=== PATIENT | male | born 1965 | race Caucasian/White ===

== ENCOUNTER 2019-05-07 13:13 | Inpatient (IN) | payer MEDICARE ==
[2019-05-07] MEDS ORDERED: Succinylcholine Chloride 20 MG/ML 10 ml SYRINGE FS ONE (13:29)
[2019-05-07] MEDS ORDERED: Ketamine 50 MG/ML (10ML VIAL) ONE (13:37)
[2019-05-07] MEDS ORDERED: Propofol 1,000 MG/100 ML VIAL IV ONE (13:40)
[2019-05-07] MEDS ORDERED: Propofol 500 MG/50 ML VIAL ONE (13:40)
[2019-05-07] MEDS ORDERED: Midazolam HCl 5 mg/ml Vial ONE ×2 (13:50→15:00)
[2019-05-07 14:11] LABS: ALT (SGPT) 54 U/L (8-55); AST (SGOT) 32 U/L (5-34); Alkaline Phosphatase 106 U/L (40-110); Anion Gap 12 mmol/L (10-20); BUN (Urea Nitrogen) 18 mg/dL (8.4-25.7); Bilirubin, Total 0.4 mg/dL (0.2-1.2); Calc. Creatinine Clearance 0 mL/min (70-130); Calcium 9.3 mg/dL (7.8-10.44); Carbon Dioxide 27 mmol/L (22-29); Chloride 107 mmol/L (98-107); Estimated GFR-MDRD 73; Globulin 3.5 g/dL (2.4-3.5); Glucose 114 mg/dL (70-105); Potassium 5.1 mmol/L (3.5-5.1); Protein, Total 7.5 g/dL (6.0-8.3); Sodium 141 mmol/L (136-145)
[2019-05-07 14:13] LABS: Actual Bicarbonate (HCO3a) 23.4 mEq/L (22-28); Analyzer IN Cardio ER; Base Excess (BEa) -3.1 mEq/L (-2.0 to +3.0); CO2 Tension 47.1 mmHg (35.0-45.0); Calcium, Ionized 1.23 mmol/L (1.12-1.30); Carboxyhemoglobin (COHb) 1.2 gm% (0.0-3.0); Hemoglobin (Hb) 14.5 g/dL (14.0-18.0); O2 Tension (PaO2) 87.1 mmHg (80.0-100.0); Potassium - ABG Lab 3.96 mmol/L (3.70-5.30); pH, Arterial 7.31 (7.35-7.45)
[2019-05-07 14:14] LABS: Prothrombin Time 13.6 SEC (12.0-14.7)
[2019-05-07 14:15] LABS: PTT 21.8 SEC (22.9-36.1)
[2019-05-07 14:24] LABS: ALV-art Gradient 139.225 (0-20); Puncture Site RRA
[2019-05-07] MEDS ORDERED: Glycopyrrolate 0.4 MG/ 2 ML VIAL SLOW IVP SCH (14:30)
[2019-05-07 14:37] LABS: Amphetamine Detected (NotDetected); Barbiturates Screen Not Detected (NotDetected); Benzodiazepine Screen Not Detected (NotDetected); Cocaine Metabolite Screen Not Detected (NotDetected); Medtox Control Line Valid? VALID (VALID); Medtox Reader # READER 4; Methadone Not Detected (NotDetected); Methamphetamine Detected (NotDetected); Opiate Screen Not Detected (NotDetected); Oxycodone Screen Not Detected (NotDetected); Phencyclidine (PCP) Detected (NotDetected); THC/Cannabinoid Screen Not Detected (NotDetected); Tricyclic Screen Not Detected (NotDetected)
[2019-05-07 14:46] LABS: #Basophils 0.1 thou/uL (0.0-0.2); #Eosinphils 0.1 thou/uL (0.0-0.7); #Monocytes 0.4 thou/uL (0.11-0.59); #Neutrophils 4.3 thou/uL (1.40-6.50); %Basophils 0.9 % (0.0-1.0); %Eosinophils 1.1 % (0.0-10.0); %Lymphocytes 17.8 % (21.0-51.0); %Monocytes 6.4 % (0.0-10.0); %Neutrophils 73.8 % (42.0-75.0); Hemoglobin 13.3 g/dL (14.0-18.0); Mean Corpuscular HGB CONC 34.2 g/dL (32.0-36.0); Mean Corpuscular Hemoglobin 31.7 pg (27.0-31.0); Mean Corpuscular Volume 92.8 fL (78.0-98.0); Mean Platelet Volume 7.5 fL (7.4-10.4); Platelet Count 221 thou/uL (130-400); RBC Distribution Width 12.3 % (11.5-14.5); White Blood Cell (WBC) Count 5.8 thou/uL (4.8-10.8)
[2019-05-07 14:53] LABS: Acetaminophen Less than 6.0 mcg/mL (10.0-30.0); Alcohol Less than 10 mg/dL (Less than 10); Salicylate Less than 8.0 mg/dL (15.0-30.0)
--- NOTE | 2019-05-07 14:59 | RAD ---
PORTABLE CHEST 1 VIEW: Date: 05/07/19 Time: 1440 hours HISTORY: Respiratory failure, drug overdose. FINDINGS/IMPRESSION: There is an endotracheal tube with tip at the level of the clavicular heads. The heart size is normal . The aorta is tortuous. No lobar consolidation, pneumothoraces, danuta pulmonary edema, or large effu sions are seen. POS: TPC
[2019-05-07] MEDS ORDERED: Glycopyrrolate 0.2 MG/ML 5 ML SYRINGE SLOW IVP SCH (15:00)
--- NOTE | 2019-05-07 15:17 | CT ---
Head CT without contrast 05/07/2019: Comparison: None HISTORY: Altered mental status, overdose TECHNIQUE: Axial CT imaging at 5 mm intervals from vertex through skull base without contrast FINDINGS: There is fluid within the nasal cavity bilaterally and within the posterior nasopharynx. Th ere is soft tissue density in the posterior lateral aspect of the oropharynx, right greater than left, which may be on the basis of redundant normal mucosal structures or a mucosal-based abnormality for which direct visualization is advised when the patient is able. No intracranial hemorrhage, midline shift, or mass effect. No ventricular enlargement. IMPRESSION: Fluid and soft tissue density within the nasopharynx and oropharynx as detailed above, po siva assessed on this examination. No intracranial hemorrhage is seen. CODE T
[2019-05-07] MEDS ORDERED: Ondansetron PF 4 MG/2 ML Vial IVP PRN ×2 (15:38→15:40)
[2019-05-07] MEDS ORDERED: Bisacodyl 10 MG SUPP PR PRN (15:38)
[2019-05-07] MEDS ORDERED: Bisacodyl 5 MG TAB PO PRN (15:38)
[2019-05-07] MEDS ORDERED: Senokot S 8.6-50 MG TAB PO PRN (15:38)
[2019-05-07] MEDS ORDERED: HYDROcodone/Acetaminophen 5/325 mg Tablet PO PRN (15:38)
[2019-05-07] MEDS ORDERED: Loperamide HCl 2 MG CAP PO PRN (15:38)
[2019-05-07] MEDS ORDERED: Morphine 2 MG/ML SYRINGE SLOW IVP PRN ×2 (15:40→18:46)
[2019-05-07] MEDS ORDERED: cloNIDine 0.1 MG TAB PO PRN (15:40)
[2019-05-07] MEDS ORDERED: hydrALAZINE 20 MG/ML VIAL SLOW IVP PRN (15:40)
[2019-05-07] MEDS ORDERED: Promethazine HCl 12.5 MG in Sodium Chloride 0.9% 50 ML IVPB PRN (15:40)
--- NOTE | 2019-05-07 15:52 | PDOC.HHP ---
Hospitalist HPI - History of Present Illness Altered mental status History of Present Illness: Patient is a 53 year old male brought to ED by EMS/law enforcement after being found by car on side of road with fluctuating mental status. penal officer at bedside reports they found methamphetamine and norco in his car. He originally was GCS 3, lesa to 7 and awake and alert but confused for a time, brought to ED and became somnolent, given narcan but did not help, patient began to snore loudly and was becoming less responsive so he was intubated in ED for airway protection. Reportedly patient had a seizure in the ambulance lasting appx 6 minutes, recieved 4mg ativan and 1mg narcan with recovery to GCS 6. In ED, CXR without acute processes and good ET tube placement. CT head with no intracranial findings. Vitals hypotensive initially, improved after intubation. EKG NSR. They discussed with Dr Che of pulmonology. [facility] Nurse at bedside and lawn care worker in room did not know any contacts or way to reach any family members. Hospitalist ROS - Review of Systems ROS unobtainable: due to endotracheal tube Hospitalist History - Past Medical History Source: RN notes reviewed, old records Other Medical History: TBI R leg injury lung cancer - Past Surgical History Other Surgical History: leg surgery - Family History Other Family History: Unable to obtain due to intubated and sedated. - Social History Other Social History: Previous cocaine, heroin abuse. Methamphetamine and norco in car. UDS positive for PCP. Patient unable to supplement this, intubated. - Exam General - other findings: intubated, sedated Eye: PERRL ENT: normocephalic atraumatic, moist mucosa ENT - other findings: ET tube in place Neck: supple, no JVD Heart: RRR, no murmur, no gallops, no rubs Respiratory: CTAB, no wheezes, no rales, no ronchi Gastrointestinal: soft, non-tender, non-distended, normal bowel sounds Extremities: no cyanosis, no clubbing, 1+ LE edema Skin: no lesions, no rashes Neurological - other findings: sedated, unable to examined, responded to stimuli before propofol per nurse Musculoskeletal: normal tone Psychiatric - other findings: unable to eval Hospitalist Results - Labs Result Diagrams: 05/07/19 14:20 05/07/19 13:28 Lab results: WBC 5.8 thou/uL (4.8-10.8) 05/07/19 14:20 Hgb 13.3 g/dL (14.0-18.0) L 05/07/19 14:20 Hct 38.9 % (42.0-52.0) L 05/07/19 14:20 MCV 92.8 fL (78.0-98.0) 05/07/19 14:20 Plt Count 221 thou/uL (130-400) 05/07/19 14:20 Neutrophils % 73.8 % (42.0-75.0) 05/07/19 14:20 ABG pH 7.31 (7.35-7.45) L 05/07/19 14:04 ABG pCO2 47.1 mmHg (35.0-45.0) H 05/07/19 14:04 ABG pO2 87.1 mmHg (80.0-100.0) 05/07/19 14:04 Sodium 141 mmol/L (136-145) 05/07/19 13:28 Potassium 5.1 mmol/L (3.5-5.1) 05/07/19 13:28 Chloride 107 mmol/L (98-107) 05/07/19 13:28 Carbon Dioxide 27 mmol/L (22-29) 05/07/19 13:28 BUN 18 mg/dL (8.4-25.7) 05/07/19 13:28 Creatinine 1.07 mg/dL (0.7-1.3) 05/07/19 13:28 Glucose 114 mg/dL (70-105) H 05/07/19 13:28 Calcium 9.3 mg/dL (7.8-10.44) 05/07/19 13:28 Total Bilirubin 0.4 mg/dL (0.2-1.2) 05/07/19 13:28 AST 32 U/L (5-34) 05/07/19 13:28 ALT 54 U/L (8-55) 05/07/19 13:28 Alkaline Phosphatase 106 U/L (40-110) 05/07/19 13:28 Creatine Kinase 175 U/L (30-200) 05/07/19 13:20 Serum Total Protein 7.5 g/dL (6.0-8.3) 05/07/19 13:28 Albumin 4.0 g/dL (3.5-5.0) 05/07/19 13:28 Additional comment: EKG NSR rate 70s no acute changes Hospitalist H&P A/P - Plan Plan: Patient is a 53 year old male admitted for: # acute hypoxic and hypercapneic respiratory failure - presumed secondary to drug abuse, PCP/methamphetamine/narcotic positive on UDS, however patient also had seizure - previous records reviewed with what seems to be overdose attempt with heroin and cocaine in 2016, will need MR consult before discharge - admit to ICU, appreciate pulmonary/critical care assistance - IVF - additional labs ordered # seizure - 6 minutes long, resolved with ativan in EMS # history of bipolar disorder - noted, presented in 2016 for suicidal ideations and note reports had been off of meds for 4 months # history of suicidal ideation - unable to ask further questions due to intubation, MHMR consult before d/c # abnormal head CT findings - unusual finding on CT head, in ramirez and nasopharynx , call placed to Dr Angulo of ENT office for help with looking at film, awaiting call back # anemia - mild # metabolic acidosis - negative ASA, tylenol, alcohol, possible secondary to substance abuse 42 minutes critical care time, patient with organ failure and needing ventilator to sustain life
[2019-05-07] MEDS ORDERED: Lorazepam 2 MG/ML VIAL SLOW IVP PRN ×2 (16:07→18:46)
[2019-05-07 17:05] LABS: Troponin I Less than 0.010 ng/mL (< 0.028)
[2019-05-07] MEDS: Sodium Chloride 0.9% 1,000 ML IV SCH (18:39)
[2019-05-07] MEDS ORDERED: Propofol BOLUS 1,000 MG/100 ML VIAL IV PRN (18:46)
[2019-05-07] MEDS ORDERED: DISCONTINUE PREVIOUS NARCOTIC PAIN MEDICATIONS AND BENZODIAZEPINES FS SCH (18:46)
[2019-05-07] MEDS ORDERED: Fentanyl BOLUS 250 ML IVPB PRN (18:46)
[2019-05-07] MEDS ORDERED: fentaNYL Citrate/PF 2,000 MCG in Sodium Chloride 0.9% 60 ML IV SCH (18:46)
[2019-05-07] MEDS: Famotidine/PF 20 mg/2ml Vial SLOW IVP SCH (21:25)
[2019-05-07] MEDS: Propofol 1,000 MG/100 ML VIAL IV PRN (21:41)
[2019-05-07 21:42] LABS: Bacteria/HPF None Seen HPF (None Seen); Bilirubin Negative (Negative); Blood, Urine Negative (Negative); Clarity Clear (Clear); Glucose, Urine (Dipstick) Normal (Negative); Leukocyte Negative Leu/uL (Negative); Nitrite Negative (Negative); Protein, Urine (Dipstick) Negative (Neg-Trace); RBC/HPF 0-3 HPF (0-3); Squamous Epithelial 0-3 HPF (0-3); Urobilinogen Normal mg/dL (Less than 2); WBC/HPF 0-3 HPF (0-3)
[2019-05-07 21:45] LABS: Urine Culture Reflex No No
[2019-05-07 22:43] LABS: Troponin I 0.016 ng/mL (< 0.028)
[2019-05-08] MEDS: Sodium Chloride 0.9% 1,000 ML IV SCH ×5 (02:26→19:47)
[2019-05-08 04:27] LABS: #Basophils 0.1 thou/uL (0.0-0.2); #Eosinphils 0.1 thou/uL (0.0-0.7); #Monocytes 0.7 thou/uL (0.11-0.59); #Neutrophils 5.3 thou/uL (1.40-6.50); %Basophils 0.8 % (0.0-1.0); %Eosinophils 1.3 % (0.0-10.0); %Lymphocytes 14.3 % (21.0-51.0); %Monocytes 9.3 % (0.0-10.0); %Neutrophils 74.3 % (42.0-75.0); Hemoglobin 12.8 g/dL (14.0-18.0); Mean Corpuscular HGB CONC 33.8 g/dL (32.0-36.0); Mean Corpuscular Hemoglobin 31.5 pg (27.0-31.0); Mean Corpuscular Volume 93.3 fL (78.0-98.0); Mean Platelet Volume 7.8 fL (7.4-10.4); Platelet Count 203 thou/uL (130-400); RBC Distribution Width 12.1 % (11.5-14.5); Red Blood Cell (RBC) Count 4.06 mill/uL (4.70-6.10); White Blood Cell (WBC) Count 7.1 thou/uL (4.8-10.8)
[2019-05-08 04:43] LABS: Anion Gap 10 mmol/L (10-20); BUN (Urea Nitrogen) 13 mg/dL (8.4-25.7); Calc. Creatinine Clearance 149 mL/min (70-130); Calcium 8.5 mg/dL (7.8-10.44); Carbon Dioxide 26 mmol/L (22-29); Chloride 110 mmol/L (98-107); Estimated GFR-MDRD Greater than 90; Glucose 105 mg/dL (70-105); Magnesium 1.8 mg/dL (1.6-2.6); Potassium 3.7 mmol/L (3.5-5.1); Sodium 142 mmol/L (136-145)
[2019-05-08 06:48] LABS: Actual Bicarbonate (HCO3a) 23.9 mEq/L (22-28); CO2 Tension 40.6 mmHg (35.0-45.0); Carboxyhemoglobin (COHb) 0.8 gm% (0.0-3.0); Hemoglobin (Hb) 13.7 g/dL (14.0-18.0); O2 Tension (PaO2) 112.3 mmHg (80.0-100.0); Potassium - ABG Lab 3.84 mmol/L (3.70-5.30); pH, Arterial 7.39 (7.35-7.45)
[2019-05-08 06:53] LABS: Puncture Site RBRACH
[2019-05-08] MEDS: Enoxaparin Sodium 40 MG/0.4 ML SYRINGE SC SCH (07:34)
[2019-05-08] MEDS: Famotidine/PF 20 mg/2ml Vial SLOW IVP SCH ×2 (07:34→19:46)
[2019-05-08] MEDS: Propofol 1,000 MG/100 ML VIAL IV PRN (08:00)
--- NOTE | 2019-05-08 09:25 | PDOC.HOSPP ---
- Subjective Encounter Date: 05/08/19 Encounter Time: :23 Subjective: CC: Altered mental status Subjective: patient continues intubated and sedated, no issues overnight except occasional trying to sit up resolved with redirection. no seizure activity reported - Objective Vital Signs & Weight: Vital Signs (12 hours) Temp Pulse Resp BP Pulse Ox 05/08/19 08:00 18 100 05/08/19 07:01 71 19 100 05/08/19 07:00 97.7 F 05/08/19 06:00 17 05/08/19 04:00 15 05/08/19 02:36 62 121/87 05/08/19 02:00 16 05/08/19 00:32 60 14 100 05/08/19 00:00 98.1 F 13 05/07/19 22:22 63 133/80 05/07/19 22:00 13 Weight Weight 215 lb 9.793 oz Most Recent Monitor Data Heart Rate from ECG 78 NIBP 109/74 NIBP BP-Mean 85 Respiration from ECG 17 SpO2 100 I&O: 05/07/19 05/08/19 05/09/19 06:59 06:59 06:59 Intake Total 1458 Output Total 1160 175 Balance 298 -175 Result Diagrams: 05/08/19 03:44 05/08/19 03:44 Hospitalist ROS - Medication Medications: Active Medications Generic Name Dose Route Start Last Admin Trade Name Freq PRN Reason Stop Dose Admin Albuterol/Ipratropium 3 ml 05/07/19 19:00 05/08/19 07:01 Duoneb NEB 3 ml I2ID-AD JAI Administration Enoxaparin Sodium 40 mg 05/08/19 09:00 05/08/19 07:34 Lovenox SC 40 mg 0900 JAI Administration Famotidine 20 mg 05/07/19 21:00 05/08/19 07:34 Pepcid SLOW IVP 20 mg Q12HR JAI Administration Sodium Chloride 1,000 mls @ 125 mls/hr 05/07/19 15:45 05/08/19 07:34 Normal Saline 0.9% IV Not Given .Q8H JAI Levetiracetam 500 mg/ Device 100 mls @ 200 mls/hr 05/07/19 21:00 05/08/19 07: 34 IVPB 100 mls BID JAI Administration Propofol 1,000 mg 05/07/19 18:46 05/07/19 21:41 Diprivan IV 06/06/19 18:46 1,000 mg INF PRN Administration TO ACHIEVE GOAL RASS Protocol Hosp A/P - Plan Patient is a 53 year old male admitted for: # acute hypoxic and hypercapneic respiratory failure - presumed secondary to drug abuse, PCP/methamphetamine/narcotic positive on UDS, however patient also had seizure in ambulance, no recurrence of seizure activity - previous records reviewed with what seems to be overdose attempt with heroin and cocaine in 2016, also seems possilby manic at that time, combative and noncompliant, will need MHMR consult before discharge likely - appreciate pulmonary/critical care assistance, ED discussed with Dr Che - ABG improved today, possibly candidate for extubation? - IVF # seizure - 6 minutes long x 1 episode, resolved with ativan in EMS - monitor for further sz activity, keppra ordered # history of bipolar disorder - noted, presented in 2016 for suicidal ideations and appears manic based on the behavior described in records, substance abuse history # polysubstance abuse - positive for opioids, pcp, methamphetamine in ED, recommend screen for agitation before extubation, precedex may help? # history of suicidal ideation - went to ED for suicide attempt with pill ingestion in 2016, unable to ask further questions yet this admission due to intubation, MHMR consult before d/c # abnormal head CT findings - unusual finding on CT head, in ramirez and nasopharynx , call placed to Dr Angulo of ENT office for help with looking at film, awaiting call back # anemia - mild # metabolic acidosis - negative ASA, tylenol, alcohol, possible secondary to substance abuse # history of polysubstance abuse - MHMR consult before discharge Physcial Exam - Physical Exam Comments: General - other findings: intubated, sedated Eye: PERRL ENT: normocephalic atraumatic, moist mucosa ENT - other findings: ET tube in place Neck: supple, no JVD Heart: RRR, no murmur, no gallops, no rubs Respiratory: CTAB, no wheezes, no rales, no ronchi Gastrointestinal: soft, non-tender, non-distended, normal bowel sounds Extremities: no cyanosis, no clubbing, 1+ LE edema Skin: no lesions, no rashes Neurological - other findings: sedated, unable to examined, responded to stimuli before propofol per nurse Musculoskeletal: normal tone Psychiatric - other findings: unable to eval
[2019-05-08] MEDS ORDERED: Haloperidol Lactate 5 MG/ML VIAL ONE (13:09)
[2019-05-08] MEDS ORDERED: Haloperidol Lactate 5 MG/ML VIAL SLOW IVP SCH (13:45)
[2019-05-08] MEDS: Acetaminophen 325 MG TAB PO PRN (18:37)
--- NOTE | 2019-05-08 22:40 | CON ---
Critical care time 30 minutes DATE OF CONSULTATION: HISTORY OF PRESENT ILLNESS: Saulo Hernandez is a 53-year-old male, apparently found down on the side of the road. He had waxing and waning mental status. Initially, they thought that they would be able to arrest him, but he became more somnolent leading to transfer to the Emergency Department. Subsequently, he was intubated. This morning with a sedation holiday, he was awaking, but moderately combative. He has ankle-wrist cuffs on and soft restraints. Remained sedated. I recommended leather restraints for the patient anticipating he might be extubated. Also, recommended a dose of IV Haldol prior to weaning and extubation. He has never been hospitalized here before. PAST MEDICAL HISTORY: Otherwise unknown. There was a visit in September of 2015. He was seen here with suicidal ideation. The notes from 2016 stated that he is reportedly bipolar. FAMILY HISTORY: Otherwise unknown. SOCIAL HISTORY: Unknown. REVIEW OF SYSTEMS: Not obtainable. PHYSICAL EXAMINATION: VITAL SIGNS: Blood pressure was stable overnight. Heart rate was in the 90s, respiratory rates in the teens. HEAD AND NECK: Unremarkable. LUNGS: Clear. HEART: Regular rhythm. ABDOMEN: Soft. EXTREMITIES: Without clubbing, cyanosis, or edema. NEUROLOGIC: Grossly nonfocal. IMAGING DATA: Chest radiograph is clear. LABORATORY DATA: Lab was remarkable for hemoglobin of 15.2 in 2016, 13.3 on admission, 12.8 today. White count was normal. Electrolytes were normal. He had PCP, amphetamine and methamphetamine in his system. He has had cocaine in his system in 2016. IMPRESSION: Drug overdose, most likely secondary to sedative drugs, but not picked up by a drug screen. Fentanyl would be a distinct possibility, although he apparently was not found with any fentanyl. In any event, he has improved. He is given the Haldol. Once he is fully awake and the sedation is cleared, I recommended that he be extubated. He can probably be released to the [facility] tomorrow if he is stable overnight. Job ID: [id number] MTDD
[2019-05-09] MEDS: Sodium Chloride 0.9% 1,000 ML IV SCH ×3 (08:09→19:49)
[2019-05-09] MEDS: Famotidine/PF 20 mg/2ml Vial SLOW IVP SCH ×2 (08:09→19:48)
[2019-05-09] MEDS: Enoxaparin Sodium 40 MG/0.4 ML SYRINGE SC SCH (09:29)
[2019-05-09 09:49] LABS: #Lymphocytes 1.1 thou/uL (1.20-3.40); #Monocytes 0.9 thou/uL (0.11-0.59); #Neutrophils 8.5 thou/uL (1.40-6.50); %Basophils 0.3 % (0.0-1.0); %Eosinophils 0.2 % (0.0-10.0); %Lymphocytes 10.6 % (21.0-51.0); %Monocytes 8.6 % (0.0-10.0); %Neutrophils 80.3 % (42.0-75.0); Hemoglobin 13.1 g/dL (14.0-18.0); Mean Corpuscular HGB CONC 34.3 g/dL (32.0-36.0); Mean Corpuscular Hemoglobin 31.9 pg (27.0-31.0); Mean Corpuscular Volume 93.1 fL (78.0-98.0); Mean Platelet Volume 7.7 fL (7.4-10.4); Platelet Count 157 thou/uL (130-400); RBC Distribution Width 12.3 % (11.5-14.5); Red Blood Cell (RBC) Count 4.09 mill/uL (4.70-6.10); White Blood Cell (WBC) Count 10.6 thou/uL (4.8-10.8)
[2019-05-09 10:13] LABS: Anion Gap 12 mmol/L (10-20); BUN (Urea Nitrogen) 12 mg/dL (8.4-25.7); Calc. Creatinine Clearance 162 mL/min (70-130); Calcium 8.2 mg/dL (7.8-10.44); Carbon Dioxide 22 mmol/L (22-29); Chloride 108 mmol/L (98-107); Estimated GFR-MDRD Greater than 90; Glucose 94 mg/dL (70-105); Magnesium 1.7 mg/dL (1.6-2.6); Potassium 4.1 mmol/L (3.5-5.1); Sodium 138 mmol/L (136-145)
--- NOTE | 2019-05-09 16:06 | PDOC.HOSPP ---
- Subjective Subjective: Seen and examined. Patient has been extubated. Patient is somnolent status post IV Haldol though he is protecting his airway and withdrawals from noxious stimuli. Patient remains restrained and handcuffed for his safety. Email Marketer at bedside, no family available this a.m. - Objective Vital Signs & Weight: Vital Signs (12 hours) Temp Pulse Resp BP Pulse Ox 05/09/19 14:07 98 05/09/19 14:04 104 H 16 05/09/19 12:43 98.5 F 80 20 113/72 99 05/09/19 08:00 97.6 F 05/09/19 07:56 73 16 100 05/09/19 07:38 100 05/09/19 04:59 98.9 F Weight Admit Weight 215 lb 9.793 oz Weight 215 lb 9.793 oz Most Recent Monitor Data Heart Rate from ECG 95 NIBP 117/84 NIBP BP-Mean 95 Respiration from ECG 19 SpO2 94 I&O: 05/08/19 05/09/19 05/10/19 06:59 06:59 06:59 Intake Total 1458 2824.8 750 Output Total 1160 2065 425 Balance 298 759.8 325 Result Diagrams: 05/09/19 09:30 05/09/19 09:30 Hospitalist ROS - Medication Medications: Active Medications Generic Name Dose Route Start Last Admin Trade Name Freq PRN Reason Stop Dose Admin Acetaminophen 650 mg 05/07/19 15:38 05/08/19 18:37 Tylenol PO 650 mg Q4H PRN Administration Headache/Fever/Mild Pain (1-3) Albuterol/Ipratropium 3 ml 05/07/19 19:00 05/09/19 14:04 Duoneb NEB 3 ml [id number] JAI Administration Enoxaparin Sodium 40 mg 05/08/19 09:00 05/09/19 09:29 Lovenox SC 40 mg 0900 JAI Administration Famotidine 20 mg 05/07/19 21:00 05/09/19 08:09 Pepcid SLOW IVP 20 mg Q12HR JAI Administration Sodium Chloride 1,000 mls @ 125 mls/hr 05/07/19 15:45 05/09/19 15:10 Normal Saline 0.9% IV Not Given .Q8H JAI Levetiracetam 500 mg/ Device 100 mls @ 200 mls/hr 05/07/19 21:00 05/09/19 08: 09 IVPB 100 mls BID JAI Administration Propofol 1,000 mg 05/07/19 18:46 05/08/19 08:00 Diprivan IV 06/06/19 18:46 1,000 mg INF PRN Administration TO ACHIEVE GOAL RASS Protocol - Exam General Appearance: NAD Eye: PERRL, anicteric sclera ENT: normocephalic atraumatic, moist mucosa Neck: supple, symmetric Heart: RRR, no murmur, no gallops, no rubs Respiratory: CTAB, no wheezes, no rales, no ronchi Gastrointestinal: soft, non-tender, no guarding, no rigidity Extremities: no edema Skin: no lesions, no rashes Neurological: cranial nerve grossly intact, normal sensation to touch Musculoskeletal: generalized weakness Psychiatric: somnolent Hosp A/P (1) Sedative overdose Code(s): T42.71XA - POISN BY UNSP ANTIEPLPTC AND SED-HYPNTC DRUGS, ACC, INIT Status: Acute (2) Acute respiratory failure Code(s): J96.00 - ACUTE RESPIRATORY FAILURE, UNSP W HYPOXIA OR HYPERCAPNIA Status: Acute (3) Hypoxia Code(s): R09.02 - HYPOXEMIA Status: Acute - Plan Plan: intensive care unit, pending down grade pulmonology/critical-care consultation, recommendations appreciated successfully extubated bedside swallow evaluation when more awake blood pressure control DVT prophylaxis if alert and awake tomorrow and no acute over events likely discharge to the care of the [facility]
[2019-05-09] MEDS: Acetaminophen 325 MG TAB PO PRN (17:06)
[2019-05-09] MEDS: Piperacillin/Tazobactam 3.375 GM in Sodium Chloride 0.9% 100 ML IVPB SCH (18:14)
--- NOTE | 2019-05-09 20:49 | PRG ---
DATE OF SERVICE: 05/09/2019 It was just noted that this afternoon, he had a temperature of 102.6. If he remains febrile and fails to have dramatic improvement in his mental status, a lumbar puncture might be considered. He does not have a stiff neck; however, so it is unlikely that he has meningitis. Even though, he is a drug user, he could have encephalitis, although I think this is less likely at this point given his gradual improvement in his neurological status, I suspect most of this is drug mediated. Job ID: [id number]
--- NOTE | 2019-05-09 20:51 | PRG ---
DATE OF SERVICE: 05/09/2019 SUBJECTIVE: Saulo Hernandez will awaken, but he goes back to sleep. He is in no distress. He is handling secretions. OBJECTIVE: VITAL SIGNS: He is afebrile. Heart rate is 99, respiratory rate 16, oximetry is 100% on room air, blood pressure 123/53. LUNGS: Clear. HEART: Regular rhythm. ABDOMEN: Soft. EXTREMITIES: Without edema. LABORATORY DATA: White count 10.6, hemoglobin 13.1, and platelets 257,000. Electrolytes are normal. IMPRESSION: Status post drug overdose. It is unclear what drug he took. The list is enormous for drugs out there that would not be picked up on a drug screen. He does have a history of suicidal ideation, which makes me wonder if he on some sort of antidepressant, that would be an SSRI, that he might have taken an excessive amount of. He also could have taken an excessive amount of other drugs that are picked up on the drug screen such as fentanyl. In any event, he is not stable to be released to retirement, but he is stable to move out of the Critical Care Unit. We will sign off. Job ID: [id number]
[2019-05-09] MEDS ORDERED: Vancomycin HCl 1 GM in Premix Bag 1 BAG IVPB SCH (21:00)
[2019-05-10] MEDS: Piperacillin/Tazobactam 3.375 GM in Sodium Chloride 0.9% 100 ML IVPB SCH ×5 (00:11→23:29)
[2019-05-10 06:49] LABS: Mean Corpuscular HGB CONC 34.2 g/dL (32.0-36.0); Mean Corpuscular Hemoglobin 31.8 pg (27.0-31.0); Mean Platelet Volume 7.6 fL (7.4-10.4); Platelet Count 170 thou/uL (130-400); RBC Distribution Width 12.2 % (11.5-14.5); Red Blood Cell (RBC) Count 3.75 mill/uL (4.70-6.10); White Blood Cell (WBC) Count 8.9 thou/uL (4.8-10.8)
[2019-05-10 07:06] LABS: Anion Gap 10 mmol/L (10-20); BUN (Urea Nitrogen) 13 mg/dL (8.4-25.7); Calc. Creatinine Clearance 148 mL/min (70-130); Calcium 8.2 mg/dL (7.8-10.44); Carbon Dioxide 24 mmol/L (22-29); Chloride 106 mmol/L (98-107); Estimated GFR-MDRD Greater than 90; Glucose 107 mg/dL (70-105); Magnesium 1.8 mg/dL (1.6-2.6); Potassium 3.7 mmol/L (3.5-5.1); Sodium 136 mmol/L (136-145)
[2019-05-10 08:00] LABS: Band 19 % (5-11); Lymphocytes 7 % (21-51); MDiff Complete? YES; Monocytes 7 % (0-10); Neutrophil 65 % (42-75); Platelet Morphology Comment Appears Adequate; Polychromasia SLIGHT = 2-3 cells (100X) (0-2/hpf)
--- NOTE | 2019-05-10 09:05 | CT ---
CT face with IV contrast HISTORY: Abnormal CT head. Possible mass. COMPARISON: CT brain 05/07/2019. FINDINGS: The mandible, globes, and zygomatic arches are intact. Mild mucosal thickening of the ethmo id air cells and left maxillary sinus. Globes have a normal appearance. Epiglottis is unremarkable. No mass is evident at the right posterior pharynx where there was concern for mass on recent CT exam. The tongue is now midline and symmetric. Nonspecific lymph nodes along each side of the face and neck. Airway of the posterior pharynx is patent. IMPRESSION: No CT evidence of a mass in region of concern on recent CT head. That density was likely related to asymmetric positioning of the tongue at the time of the exam. Mild mucosal disease of the ethmoid air cells and left maxillary sinus.
[2019-05-10] MEDS: Sodium Chloride 0.9% 1,000 ML IV SCH ×3 (09:10→23:28)
[2019-05-10] MEDS: Enoxaparin Sodium 40 MG/0.4 ML SYRINGE SC SCH (09:11)
[2019-05-10] MEDS: Famotidine/PF 20 mg/2ml Vial SLOW IVP SCH ×2 (09:11→19:55)
[2019-05-10] MEDS ORDERED: Iopamidol-370 76% 500 ML 1 ML ONE (11:20)
--- NOTE | 2019-05-10 13:59 | PDOC.HOSPP ---
- Subjective Encounter Date: 05/10/19 Encounter Time: 10:52 Subjective: 53 y/o male brought to the hospital after he was found unresponsive in his care on the roadside. had Waxing and waxing responsiveness associated with confusion. reportredly had 2 episode of seizure enroute to the hospital. UDS was posistive for PCP, methamp and amphetamine. Was intubated due to somnolence/ DUMP GRADER depression and later was extubated. He however continue to have fluctuating mental status but mostly has been somnolent. Had fever on 05/09/2019 and was started on antibiotics. Patient was somnolent during my evaluation. - Objective Vital Signs & Weight: Vital Signs (12 hours) Temp Pulse Resp BP Pulse Ox 05/10/19 12:17 99.3 F 90 20 96/60 96 05/10/19 08:00 96 05/10/19 07:56 99.4 F 96 20 96/60 94 L 05/10/19 06:39 83 16 98 05/10/19 04:41 99.7 F H 91 14 116/75 99 Weight Admit Weight 215 lb 9.793 oz Weight 215 lb 9.793 oz Most Recent Monitor Data Heart Rate from ECG 95 NIBP 117/84 NIBP BP-Mean 95 Respiration from ECG 19 SpO2 94 I&O: 05/09/19 05/10/19 05/11/19 06:59 06:59 06:59 Intake Total 2824.8 750 Output Total 2065 1875 Balance 759.8 -1125 Result Diagrams: 05/10/19 06:36 05/10/19 06:36 Hospitalist ROS - Medication Medications: Active Medications Generic Name Dose Route Start Last Admin Trade Name Freq PRN Reason Stop Dose Admin Acetaminophen 650 mg 05/07/19 15:38 05/09/19 17:06 Tylenol PO 650 mg Q4H PRN Administration Headache/Fever/Mild Pain (1-3) Albuterol/Ipratropium 3 ml 05/07/19 19:00 05/10/19 13:09 Duoneb NEB Not Given [id number] JAI Enoxaparin Sodium 40 mg 05/08/19 09:00 05/10/19 09:11 Lovenox SC 40 mg 0900 JAI Administration Famotidine 20 mg 05/07/19 21:00 05/10/19 09:11 Pepcid SLOW IVP 20 mg Q12HR JAI Administration Sodium Chloride 1,000 mls @ 125 mls/hr 05/07/19 15:45 05/10/19 09:10 Normal Saline 0.9% IV 1,000 mls .Q8H JAI Administration Levetiracetam 500 mg/ Device 100 mls @ 200 mls/hr 05/07/19 21:00 05/10/19 09: 11 IVPB 100 mls BID AJI Administration Piperacillin Sod/Tazobactam 100 mls @ 200 mls/hr 05/09/19 18:00 05/10/19 11: 50 Sod 3.375 gm/ Sodium Chloride IVPB 100 mls Q6HR JAI Administration Vancomycin HCl 2 gm/ Sodium 500 mls @ 250 mls/hr 05/09/19 20:00 05/10/19 09: 11 Chloride IVPB 500 mls 0800,2000 JAI Administration - Exam General - other findings: somnolent ENT: normocephalic atraumatic, moist mucosa Neck: supple, symmetric, no JVD Heart: RRR Respiratory: normal chest expansion Respiratory - other findings: fair air entry bilaterally with no crackles or rhonchi Gastrointestinal: soft, non-distended, normal bowel sounds Extremities: no edema Neurological - other findings: Somnolent. No response to sternal rub. face is symetrical. GCS 3/15 Hosp A/P (1) Acute encephalopathy Code(s): G93.40 - ENCEPHALOPATHY, UNSPECIFIED Status: Acute (2) Seizure Code(s): R56.9 - UNSPECIFIED CONVULSIONS Status: Acute (3) Toxic encephalopathy Code(s): G92 - TOXIC ENCEPHALOPATHY Status: Acute (4) Polysubstance abuse Code(s): F19.10 - OTHER PSYCHOACTIVE SUBSTANCE ABUSE, UNCOMPLICATED Status: Acute (5) Anemia Code(s): D64.9 - ANEMIA, UNSPECIFIED Status: Acute (6) Metabolic acidosis Code(s): E87.2 - ACIDOSIS Status: Acute (7) Unresponsiveness Status: Acute - Plan Get CT facial bones given nasopharyngeal density noted on prior CT head. Continue broad spectrum antibiotics. Get EEG to rule out non convulsive seizures. Get Ammonia and LFT NPO for now. Transfer back to [facility] contemplated unless mental status improves Consult neurology
[2019-05-10 14:43] LABS: ALT (SGPT) 12 U/L (8-55); AST (SGOT) 16 U/L (5-34); Albumin 2.7 g/dL (3.5-5.0); Alkaline Phosphatase 58 U/L (40-110); Bilirubin, Direct 0.2 mg/dL (0.1-0.3); Bilirubin, Total 0.6 mg/dL (0.2-1.2); Protein, Total 5.8 g/dL (6.0-8.3)
--- NOTE | 2019-05-10 22:23 | CON ---
DATE OF CONSULTATION: 05/10/2019 CONSULTING PHYSICIAN: Hospitalist Service. IMPRESSION: Persistent lethargy following two seizures related to drug use. His workup at this time appears completely unremarkable for any sign of a permanent injury. PLAN: 1. Continue IV fluids. 2. Monitor clinical course. HISTORY OF PRESENT ILLNESS: Mr. Hernandez is a 53-year-old man, who was brought in by the police department after being arrested for drug related charges. He had two witnessed generalized seizures. Had a workup in the emergency room, which include a CT scan of the brain, which was normal. All his lab work has showed normal metabolic studies. His tox screen was positive for PCP, methamphetamine, and amphetamines. He had an EEG done today that showed a normal 8 hertz background when maximally stimulated. Otherwise, he appeared quite lethargic. Vital signs have been stable. He has been afebrile. PAST MEDICAL HISTORY: Otherwise unknown. FAMILY HISTORY: Unknown. SOCIAL HISTORY: Unknown other than drug use. ALLERGIES: NONE REPORTED. REVIEW OF SYSTEMS: Not obtainable due to his lethargy. PHYSICAL EXAMINATION: GENERAL: He is a well-nourished, middle-aged man, lying in bed quietly sleeping. HEENT: Pupils are equal and reactive. Conjunctivae are clear. Eyes are conjugate. Cranium, normocephalic and atraumatic. NECK: Supple. No lymphadenopathy. EXTREMITIES: No cyanosis or edema. NEUROLOGIC: He resists eye opening to some degree. He had some light snoring, but would not respond verbally. His face appears symmetric. His tone is symmetric. No abnormal movements were seen. SUMMARY: This is a middle-aged man with two seizures in the midst of PCP and amphetamines. There should not be any permanent neurologic injury based on available information. Continue supportive measures and I expect him to regain consciousness. Job ID: [id number]
[2019-05-11] MEDS: Piperacillin/Tazobactam 3.375 GM in Sodium Chloride 0.9% 100 ML IVPB SCH ×3 (05:20→17:23)
[2019-05-11 07:25] LABS: #Eosinphils 0.1 thou/uL (0.0-0.7); #Lymphocytes 0.8 thou/uL (1.20-3.40); #Monocytes 0.6 thou/uL (0.11-0.59); #Neutrophils 5.3 thou/uL (1.40-6.50); %Basophils 0.6 % (0.0-1.0); %Eosinophils 1.3 % (0.0-10.0); %Monocytes 8.2 % (0.0-10.0); %Neutrophils 78.9 % (42.0-75.0); Hemoglobin 11.3 g/dL (14.0-18.0); Mean Corpuscular Hemoglobin 31.1 pg (27.0-31.0); Mean Corpuscular Volume 94.4 fL (78.0-98.0); Mean Platelet Volume 7.5 fL (7.4-10.4); Platelet Count 197 thou/uL (130-400); RBC Distribution Width 12.2 % (11.5-14.5); Red Blood Cell (RBC) Count 3.62 mill/uL (4.70-6.10); White Blood Cell (WBC) Count 6.8 thou/uL (4.8-10.8)
[2019-05-11 07:37] LABS: Vancomycin, Trough 14.7 ug/mL
[2019-05-11 07:41] LABS: ALT (SGPT) 13 U/L (8-55); AST (SGOT) 15 U/L (5-34); Albumin 2.6 g/dL (3.5-5.0); Alkaline Phosphatase 53 U/L (40-110); Anion Gap 12 mmol/L (10-20); BUN (Urea Nitrogen) 17 mg/dL (8.4-25.7); Bilirubin, Total 0.6 mg/dL (0.2-1.2); CRP (Inflammatory) 17.11 mg/dL (= or < 0.5); Calc. Creatinine Clearance 151 mL/min (70-130); Carbon Dioxide 24 mmol/L (22-29); Chloride 109 mmol/L (98-107); Estimated GFR-MDRD Greater than 90; Globulin 2.5 g/dL (2.4-3.5); Glucose 95 mg/dL (70-105); Protein, Total 5.1 g/dL (6.0-8.3); Sodium 141 mmol/L (136-145)
[2019-05-11] MEDS: Sodium Chloride 0.9% 1,000 ML IV SCH (08:11)
[2019-05-11] MEDS: Enoxaparin Sodium 40 MG/0.4 ML SYRINGE SC SCH (08:12)
[2019-05-11] MEDS: Famotidine/PF 20 mg/2ml Vial SLOW IVP SCH ×2 (08:13→23:15)
--- NOTE | 2019-05-11 09:31 | EEG ---
Referring Physician: DR. CHERRY EEG # [id number] TEST TYPE: ROUTINE PORTABLE INPATIENT REPORT: AN EEG USING THE INTERNATIONAL TEN-TWENTY SYSTEM OF ELECTRODE PLACEMENT WAS PERFORMED. The best waking background is an 8 hertz alpha frequency when maximally stimulated. The background is generally suppressed. No sleep transients were noted. Photic stimulation was unremarkable. No epileptiform features were present. IMPRESSION: THIS IS A NORMAL APPEARING EEG WITH SOME PERSISTING DROWSINESS. Ice Cream Server: SHAHNAZ Vice President Supply Chain: [email or web address]
--- NOTE | 2019-05-11 14:39 | PDOC.HOSPP ---
- Subjective Encounter Date: 05/11/19 Encounter Time: 09:37 Subjective: 53 y/o male brought to the hospital after he was found unresponsive in his care on the roadside. had Waxing and waxing responsiveness associated with confusion. reportredly had 2 episode of seizure enroute to the hospital. UDS was posistive for PCP, methamp and amphetamine. Was intubated due to somnolence/ MENS LOCKER ROOM ATTENDANT depression and later was extubated. He however continue to have fluctuating mental status but mostly has been somnolent. Had fever on 05/09/2019 and was started on antibiotics. Still somnolent during my evaluation but reportedly answers some questions to network security engineer in the run. - Objective Vital Signs & Weight: Vital Signs (12 hours) Temp Pulse Resp BP Pulse Ox 05/11/19 13:39 76 16 96 05/11/19 12:00 92 L 05/11/19 08:00 95 05/11/19 07:33 98.4 F 76 20 100/64 94 L 05/11/19 06:56 72 16 98 05/11/19 05:29 98.1 F 79 18 96/63 94 L Weight Admit Weight 215 lb 9.793 oz Weight 215 lb 9.793 oz Most Recent Monitor Data Heart Rate from ECG 95 NIBP 117/84 NIBP BP-Mean 95 Respiration from ECG 19 SpO2 94 I&O: 05/10/19 05/11/19 05/12/19 06:59 06:59 06:59 Intake Total 750 1262 Output Total 1873 2025 Balance -1660 -969 Result Diagrams: 05/11/19 07:09 05/11/19 07:08 Hospitalist ROS - Medication Medications: Active Medications Generic Name Dose Route Start Last Admin Trade Name Freq PRN Reason Stop Dose Admin Acetaminophen 650 mg 05/07/19 15:38 05/09/19 17:06 Tylenol PO 650 mg Q4H PRN Administration Headache/Fever/Mild Pain (1-3) Albuterol/Ipratropium 3 ml 05/07/19 19:00 05/11/19 13:39 Duoneb NEB 3 ml [id number] JAI Administration Enoxaparin Sodium 40 mg 05/08/19 09:00 05/11/19 08:12 Lovenox SC 40 mg 0900 JAI Administration Famotidine 20 mg 05/07/19 21:00 05/11/19 08:13 Pepcid SLOW IVP 20 mg Q12HR JAI Administration Levetiracetam 500 mg/ Device 100 mls @ 200 mls/hr 05/07/19 21:00 05/11/19 08: 11 IVPB 100 mls BID JAI Administration Piperacillin Sod/Tazobactam 100 mls @ 200 mls/hr 05/09/19 18:00 05/11/19 12: 05 Sod 3.375 gm/ Sodium Chloride IVPB 100 mls Q6HR JAI Administration Vancomycin HCl 2 gm/ Sodium 500 mls @ 250 mls/hr 05/09/19 20:00 05/11/19 08: 11 Chloride IVPB 500 mls 0800,1999 JAI Administration - Exam General - other findings: somnolent. Eye: anicteric sclera ENT: normocephalic atraumatic Neck: supple, symmetric Heart: RRR Respiratory: no wheezes, no rales, no ronchi, normal chest expansion, no tachypnea Gastrointestinal: soft, non-distended, normal bowel sounds Extremities: no cyanosis, no edema Neurological - other findings: somnolent. face is symmetrical. GCS 3/15 Hosp A/P (1) Positive blood cultures Code(s): R78.81 - BACTEREMIA Status: Acute (2) Acute encephalopathy Code(s): G93.40 - ENCEPHALOPATHY, UNSPECIFIED Status: Acute (3) Seizure Code(s): R56.9 - UNSPECIFIED CONVULSIONS Status: Acute (4) Toxic encephalopathy Code(s): G92 - TOXIC ENCEPHALOPATHY Status: Acute (5) Polysubstance abuse Code(s): F19.10 - OTHER PSYCHOACTIVE SUBSTANCE ABUSE, UNCOMPLICATED Status: Acute (6) Anemia Code(s): D64.9 - ANEMIA, UNSPECIFIED Status: Acute (7) Metabolic acidosis Code(s): E87.2 - ACIDOSIS Status: Acute (8) Unresponsiveness Status: Acute - Plan Continue broad spectrum antibiotics. Though staph epi ius considered contaminant , Real staph epi bacteremia is possibnle in this patient with polysubstance abuse and features SIRS. We will get repeat cultures and Get ID consultation. Substitute NS with LR due to worsening hyperchloremia NPO for now. Will place NG tube and start tube feeding if patient is still somnolent.
[2019-05-11] MEDS: Lactated Ringer's 1,000 ML IV SCH (16:05)
[2019-05-12] MEDS: Piperacillin/Tazobactam 3.375 GM in Sodium Chloride 0.9% 100 ML IVPB SCH ×4 (01:41→13:05)
[2019-05-12 05:38] LABS: #Eosinphils 0.1 thou/uL (0.0-0.7); #Lymphocytes 0.7 thou/uL (1.20-3.40); #Monocytes 0.7 thou/uL (0.11-0.59); #Neutrophils 3.9 thou/uL (1.40-6.50); %Basophils 0.8 % (0.0-1.0); %Eosinophils 2.4 % (0.0-10.0); %Lymphocytes 12.6 % (21.0-51.0); %Monocytes 12.2 % (0.0-10.0); Hemoglobin 11.9 g/dL (14.0-18.0); Mean Corpuscular HGB CONC 32.9 g/dL (32.0-36.0); Mean Corpuscular Hemoglobin 30.9 pg (27.0-31.0); Mean Platelet Volume 7.6 fL (7.4-10.4); Platelet Count 230 thou/uL (130-400); Red Blood Cell (RBC) Count 3.86 mill/uL (4.70-6.10); White Blood Cell (WBC) Count 5.5 thou/uL (4.8-10.8)
[2019-05-12 05:51] LABS: ALT (SGPT) 22 U/L (8-55); AST (SGOT) 28 U/L (5-34); Albumin 2.9 g/dL (3.5-5.0); Alkaline Phosphatase 65 U/L (40-110); Anion Gap 12 mmol/L (10-20); BUN (Urea Nitrogen) 16 mg/dL (8.4-25.7); Bilirubin, Total 0.7 mg/dL (0.2-1.2); Calc. Creatinine Clearance 155 mL/min (70-130); Calcium 8.6 mg/dL (7.8-10.44); Carbon Dioxide 22 mmol/L (22-29); Chloride 107 mmol/L (98-107); Estimated GFR-MDRD Greater than 90; Glucose 93 mg/dL (70-105); Potassium 3.7 mmol/L (3.5-5.1); Protein, Total 5.9 g/dL (6.0-8.3); Sodium 137 mmol/L (136-145)
[2019-05-12] MEDS: Lactated Ringer's 1,000 ML IV SCH ×2 (09:25→14:22)
[2019-05-12] MEDS: Famotidine/PF 20 mg/2ml Vial SLOW IVP SCH (09:28)
[2019-05-12] MEDS: Enoxaparin Sodium 40 MG/0.4 ML SYRINGE SC SCH (09:29)
[2019-05-12] MEDS: Acetaminophen 325 MG TAB PO PRN (09:33)
--- NOTE | 2019-05-12 09:50 | PDOC.HOSPP ---
- Subjective Encounter Date: 05/12/19 Encounter Time: 09:47 Subjective: 53 y/o male brought to the hospital after he was found unresponsive [place] his care [place]. had Waxing and waxing responsiveness associated with confusion. reportredly had 2 episode of seizure enroute to the hospital. UDS was posistive for PCP, methamp and amphetamine. Was intubated due to somnolence/ INFECTION CONTROL COORDINATOR depression and later was extubated. He however continue to have fluctuating mental status but mostly has been somnolent. Had fever on 05/09/2019 and was started on antibiotics. Patient woke up after seizures on 05/11/2019 and has been awake since then. Told me he took several medications including PCP, Metamphetamine, norco and others to kill himself for he is tired of trying to save his parents ranch. - Objective Vital Signs & Weight: Vital Signs (12 hours) Temp Pulse Resp BP Pulse Ox 05/12/19 07:55 84 22 H 96 05/12/19 07:23 98 F 67 20 124/73 93 L 05/12/19 04:35 98.3 F 75 20 111/65 95 05/12/19 00:34 81 26 H 97 05/11/19 23:38 98.6 F 94 20 116/70 95 Weight Admit Weight 215 lb 9.793 oz Weight 215 lb 9.793 oz Most Recent Monitor Data Heart Rate from ECG 95 NIBP 117/84 NIBP BP-Mean 95 Respiration from ECG 19 SpO2 94 I&O: 05/11/19 05/12/19 05/13/19 06:59 06:59 06:59 Intake Total 1262 0 Output Total 2024 3724 Balance -293 -1426 Result Diagrams: 05/12/19 04:57 05/12/19 04:57 Additional Labs: Accuchecks 05/11/19 15:28 POC Glucose 81 Hospitalist ROS - Medication Medications: Active Medications Generic Name Dose Route Start Last Admin Trade Name Freq PRN Reason Stop Dose Admin Acetaminophen 650 mg 05/07/19 15:38 05/12/19 09:33 Tylenol PO 650 mg Q4H PRN Administration Headache/Fever/Mild Pain (1-3) Albuterol/Ipratropium 3 ml 05/07/19 19:00 05/12/19 07:55 Duoneb NEB 3 ml [id number] JAI Administration Enoxaparin Sodium 40 mg 05/08/19 09:00 05/12/19 09:29 Lovenox SC 40 mg 0900 JAI Administration Famotidine 20 mg 05/07/19 21:00 05/12/19 09:28 Pepcid SLOW IVP 20 mg Q12HR JAI Administration Levetiracetam 500 mg/ Device 100 mls @ 200 mls/hr 05/07/19 21:00 05/12/19 09: 27 IVPB 100 mls BID JAI Administration Piperacillin Sod/Tazobactam 100 mls @ 200 mls/hr 05/09/19 18:00 05/12/19 09: 36 Sod 3.375 gm/ Sodium Chloride IVPB 100 mls Q6HR JAI Administration Vancomycin HCl 2 gm/ Sodium 500 mls @ 250 mls/hr 05/09/19 20:00 05/12/19 09: 28 Chloride IVPB 500 mls 0800,2000 JAI Administration Sodium Chloride 10 ml 05/11/19 21:00 05/12/19 09:36 Flush - Normal Saline IVF 10 ml Q12HR JAI Administration - Exam General Appearance: awake alert Eye: anicteric sclera ENT: normocephalic atraumatic, moist mucosa Neck: supple, symmetric, no JVD Heart: RRR, no murmur Respiratory: no wheezes, no rales, no ronchi, normal chest expansion, no tachypnea Gastrointestinal: soft, non-tender, non-distended, normal bowel sounds, no palpable masses Extremities: no cyanosis, no edema Skin - other findings: scattered tattoes noted on the body Neurological: cranial nerve grossly intact, no focal deficits Psychiatric: A&O x 3 Hosp A/P (1) Positive blood cultures Code(s): R78.81 - BACTEREMIA Status: Acute (2) Acute encephalopathy Code(s): G93.40 - ENCEPHALOPATHY, UNSPECIFIED Status: Acute (3) Seizure Code(s): R56.9 - UNSPECIFIED CONVULSIONS Status: Acute (4) Toxic encephalopathy Code(s): G92 - TOXIC ENCEPHALOPATHY Status: Acute (5) Polysubstance abuse Code(s): F19.10 - OTHER PSYCHOACTIVE SUBSTANCE ABUSE, UNCOMPLICATED Status: Acute (6) Anemia Code(s): D64.9 - ANEMIA, UNSPECIFIED Status: Acute (7) Metabolic acidosis Code(s): E87.2 - ACIDOSIS Status: Acute (8) Unresponsiveness Status: Acute (9) Suicide attempt Status: Acute (10) Intentional overdose of drug in tablet form Code(s): T50.902A - POISONING BY UNSP DRUG/MEDS/BIOL SUBST, SELF-HARM, INIT Status: Acute (11) Diabetes mellitus Code(s): E11.9 - TYPE 2 DIABETES MELLITUS WITHOUT COMPLICATIONS Status: Acute - Plan Continue broad spectrum antibiotics. Restart diet. Diabetic diet. Get [facility] consult. D/W Neurology about review of antiepileptic given seizure on keppra Get CK and hba1c Start sliding scale insulin. Awaiting ID evaluation. Suicide and seizure precaution.
[2019-05-12] MEDS ORDERED: Dextrose 50% Abboject 50 ML SYRINGE SLOW IVP PRN (09:59)
[2019-05-12] MEDS ORDERED: Dextrose 5% in Water 1,000 ML IV PRN (09:59)
[2019-05-12] MEDS ORDERED: HumaLOG 300 UNITS/3 ML VIAL SC PRN (09:59)
[2019-05-12 10:45] LABS: Hemoglobin A1c 5.3 % (4.0-6.0)
[2019-05-12] MEDS ORDERED: levETIRAcetam In NaCl (Iso-Os) 750 MG in Premix Bag 1 BAG IVPB SCH ×2 (11:00→21:00)
[2019-05-12] MEDS ORDERED: LEVETIRACETAM IVPB SCH (11:15)
[2019-05-12] MEDS ORDERED: SODIUM CHLORIDE 0.9% IVPB SCH (11:15)
[2019-05-12] MEDS ORDERED: NACL IVPB SCH (11:15)
[2019-05-12] MEDS ORDERED: Piperacillin/Tazobactam 3.375 GM in Sodium Chloride 0.9% 100 ML IVPB SCH (14:00)
[2019-05-12 14:41] LABS: HIV (1/2) Antibody/Antigen Non-Reactive (NonReactive); HIV 1/2 INDEX 0.08 S/CO (<1.00)
[2019-05-12 14:43] LABS: Syphilis Antibody Nonreactive (Nonreactive); Syphilis Antibody Index 0.05 S/CO (<1.00 Non-Reactive)
[2019-05-12 14:48] LABS: Hep C IgG Ab Reflex HepC Qnt (NonReactive); Hep C Index 12.45 S/CO (0-0.79)
[2019-05-12 16:15] VITALS: BP 106/60; TEMP 99.1
--- NOTE | 2019-05-12 17:50 | CON ---
DATE OF CONSULTATION: 05/12/2019 REASON FOR CONSULTATION: Evaluation of bacteremia. HISTORY OF PRESENT ILLNESS: A 53-year-old, who has a history of traumatic brain injury, lung cancer, depression with suicidal ideation in the past, bipolar disorder, and chronic use of methamphetamine and cocaine, who was brought in for evaluation of presumed overdose by EMS, both of methamphetamine and hydrocodone prior to admission. He was given Ativan and Narcan, a nasal trumpet was placed. Basically, police found him slumped inside his car with meth and hydrocodone. He [place] Coma Score was 3. His temperature was 98.6. He had a seizure activity for about 6 minutes, then he started to improve. On arrival, his BP was 123/89, pulse 98, respirations 13, and O2 saturation 100. The exam, the patient appeared alert and oriented. No distress. His pupils are equal and reactive. Overall exam was not remarkable. Although in the ER physician's note, it is stated that he was alert and oriented to person, place, and time. Later on, it is stated that he had difficulty in maintaining his airway, so he had to be intubated for airway protection. Initial lab data with a white cell count 7.1, hemoglobin 12.8, and platelets 203 with 74% neutrophils and 14% lymphocytes. INR 1.0. A pH of 7.3, pCO2 of 47, and pO2 of 87. Chemistry with essentially normal findings except for mild elevation in the glucose. Urinalysis was essentially normal. Toxicology with PCP, amphetamines, methamphetamines, or opiates were not detected. The patient has had 2 sets of blood cultures from the , which were positive one set with 2 different types of coagulase-negative Staph and the second set with Staphylococcus epidermidis. Currently, Mr. Hernandez is awake. He complains of nasal obstipation, but no headaches. No visual symptoms, sore throat, odynophagia, or dysphagia. No neck pain. No other appendicular structure pain. He has some what he describes as this burning sensation in the right suprapubic area. He has complains of constipation as well. No back pain. No abdominal pain. No respiratory symptoms except for some cough with very little sputum production. No dyspnea. No other neurological symptoms. PAST MEDICAL HISTORY: Traumatic brain injury, bipolar disorder, some form of lung cancer reported, depression, suicidal ideation, and cocaine and methamphetamine abuse for many years now. ALLERGIES: NONE. SOCIAL HISTORY: He smokes daily. He lives in [place]. CURRENT MEDICATIONS: 1. Inhalers. 2. Dulcolax. 3. Catapres p.r.n. 4. Lovenox. 5. Pepcid. 6. Keppra. 7. Zosyn. 8. Vancomycin. PHYSICAL EXAMINATION: VITAL SIGNS: Essentially, the patient had a temperature 102.6 on the 24th and afebrile since. SKIN: He has tattoos in the upper extremities. Otherwise, skin exam normal. Peripheral IV access. He is voiding spontaneously. No lymphadenopathy. HEENT: Ocular movements conjugate. Sclerae are white. Conjunctivae are hyperemia mild. Pupils are equal and reactive. Oral cavity with numerous teeth in place with some decay and gum disease. NECK: Supple. No jugular vein distention or carotid bruits. LUNGS: Symmetric air entry without crackles or wheezing. HEART: S1 and S2. Regular rate. No S3, S4, or murmurs. ABDOMEN: Soft, not distended or tender. No ascites. No bladder distention. He states that he had a hernia, but I could not identify any hernia sac. GENITAL: Normal. EXTREMITIES: No joint inflammatory activity. Pulses are 1+ in dorsalis pedis. He is able to move extremities equally. NEUROLOGIC: He is oriented x3. He follows commands. Speech is normal. LABORATORY DATA: Followup labs; the white cell count is at 5.5, hemoglobin 11.9, differential with mild lymphocytopenia, and neutrophils to 72%. IMAGING STUDIES: The facial bone CT with no significant findings. Chest x-ray with ET tube, but no lobar consolidation noted. He had an EEG, which was almost normal. ASSESSMENT AND PLAN: Cocaine and methamphetamine abuse with seizure activity and requiring brief intubation. Now, the patient has recovered his mental state. The organisms isolated from the blood cultures are likely represent contamination of the sample and should not be treated. We will check human immunodeficiency virus, hepatitis C, and syphilis serology. Discontinue antimicrobial therapy. Job ID: [id number]
[2019-05-14 20:07] LABS: Hep C PCR-Quant HCV Not Detected IU/mL (.)
== END 2019-05-12 16:32 | DRG 917 ==
LOC: ERS 13:13 → CCU 17:59 → EEVIPCON 17:59 → T4-A 05-09 12:41 → 2SE 05-11 15:38
PROVIDERS: ADMIT Internal Medicine; ATTEND Emergency Medicine
PROC: 0BH17EZ Insertion of Endotracheal Airway into Trachea, Via Natural or Artificial Opening (ICD-10-PCS; principal; 2019-05-07)
PROC: 5A1945Z Respiratory Ventilation, 24-96 Consecutive Hours (ICD-10-PCS; 2019-05-07)
DX: T50.902A Poisoning by unspecified drugs, medicaments and biological substances, intentional self-harm, initial encounter (principal); J96.01 Acute respiratory failure with hypoxia; J96.02 Acute respiratory failure with hypercapnia; R40.2342 Coma scale, best motor response, flexion withdrawal, at arrival to emergency department; R40.2112 Coma scale, eyes open, never, at arrival to emergency department; R40.2222 Coma scale, best verbal response, incomprehensible words, at arrival to emergency department; G92 Toxic encephalopathy; E87.2 Acidosis; F15.10 Other stimulant abuse, uncomplicated; F31.9 Bipolar disorder, unspecified; F14.10 Cocaine abuse, uncomplicated; D64.9 Anemia, unspecified; Z85.118 Personal history of other malignant neoplasm of bronchus and lung; Z87.891 Personal history of nicotine dependence; Z87.820 Personal history of traumatic brain injury; F11.10 Opioid abuse, uncomplicated; R93.0 Abnormal findings on diagnostic imaging of skull and head, not elsewhere classified; Z78.1 Physical restraint status; E87.8 Other disorders of electrolyte and fluid balance, not elsewhere classified; E11.9 Type 2 diabetes mellitus without complications; K59.00 Constipation, unspecified; F17.200 Nicotine dependence, unspecified, uncomplicated; R56.9 Unspecified convulsions
CPT/HCPCS: 31500; 36415; 36416; 51702; 70450; 70487; 71045; 80048; 80053; 80076; 80202; 80306; 80307; 81001; 82140; 82550; 82805; 83036; 83735; 83880; 84146; 84443; 84484; 85025; 85610; 85652; 85730; 86140; 86780; 86803; 87040; 87077; 87086; 87149; 87186; 87389; 87522; 93005; 94002; 94003; 94640; 95816; 95819; 96365; 96366; 96374; 96375; 96376; J1630; J1650; J1953; J2250; J2543; J2704; J3370; J3490; J7050; J7620; Q9967; S0028

== ENCOUNTER 2019-05-23 17:01 | Emergency (ER) | payer MEDICARE ==
[2019-05-23] MEDS ORDERED: Ketamine 50 MG/ML (10ML VIAL) ONE (17:05)
[2019-05-23] MEDS ORDERED: Rocuronium Bromide 10 MG/ML (10ML VIAL) ONE (17:05)
[2019-05-23] MEDS ORDERED: Lorazepam 2 MG/ML VIAL ONE ×2 (17:09→17:20)
[2019-05-23] MEDS ORDERED: levETIRAcetam 500 MG/100 ML PREMIX BAG ONE (17:20)
[2019-05-23 17:53] LABS: #Basophils 0.1 thou/uL (0.0-0.2); #Eosinphils 0.1 thou/uL (0.0-0.7); #Lymphocytes 1.3 thou/uL (1.20-3.40); #Monocytes 0.4 thou/uL (0.11-0.59); #Neutrophils 6.2 thou/uL (1.40-6.50); %Eosinophils 1.2 % (0.0-10.0); %Lymphocytes 16.4 % (21.0-51.0); %Monocytes 4.7 % (0.0-10.0); %Neutrophils 76.8 % (42.0-75.0); Hemoglobin 14.7 g/dL (14.0-18.0); Mean Corpuscular HGB CONC 33.8 g/dL (32.0-36.0); Mean Corpuscular Hemoglobin 31.3 pg (27.0-31.0); Mean Corpuscular Volume 92.8 fL (78.0-98.0); Mean Platelet Volume 6.9 fL (7.4-10.4); Platelet Count 411 thou/uL (130-400); Red Blood Cell (RBC) Count 4.69 mill/uL (4.70-6.10)
[2019-05-23 18:14] LABS: ALT (SGPT) 19 U/L (8-55); AST (SGOT) 14 U/L (5-34); Acetaminophen Less than 6.0 mcg/mL (10.0-30.0); Albumin 3.8 g/dL (3.5-5.0); Alcohol Less than 10 mg/dL (Less than 10); Alkaline Phosphatase 72 U/L (40-110); Anion Gap 9 mmol/L (10-20); BUN (Urea Nitrogen) 21 mg/dL (8.4-25.7); Bilirubin, Total 0.3 mg/dL (0.2-1.2); Calc. Creatinine Clearance 0 mL/min (70-130); Calcium 9.3 mg/dL (7.8-10.44); Carbon Dioxide 30 mmol/L (22-29); Chloride 106 mmol/L (98-107); Estimated GFR-MDRD 83; Globulin 3.2 g/dL (2.4-3.5); Glucose 91 mg/dL (70-105); Potassium 4.3 mmol/L (3.5-5.1); Salicylate Less than 8.0 mg/dL (15.0-30.0); Sodium 141 mmol/L (136-145)
--- NOTE | 2019-05-23 19:02 | CT ---
CT arteriogram neck with IV contrast and 3-D imaging CT cervical spine noncontrast HISTORY: Neck injury. FINDINGS: There is normal branching of the great vessels at the aortic arch with good flow into each carotid and vertebral system. The common and internal carotid arteries have a normal appearance. No significant plaque or dissectio n. No adjacent hemorrhage. Soft tissues are unremarkable. Vertebral body heights and alignment of the cervical spine maintained. Disc space narrowing, subchond ral sclerosis, and mild posterior disc bulge at the C6-7 level. No acute fracture or dislocation are apparent. IMPRESSION: No acute traumatic injury is demonstrated. Mild degenerative changes lower cervical spine.
== END 2019-05-23 19:38 | disposition still patient (30) ==
LOC: ERS 17:01 → EEVIPCON 17:01 → ERS 19:38
DX: R56.9 Unspecified convulsions (principal); F31.9 Bipolar disorder, unspecified; F17.220 Nicotine dependence, chewing tobacco, uncomplicated; F17.210 Nicotine dependence, cigarettes, uncomplicated
CPT/HCPCS: 36416; 70498; 80053; 80307; 82140; 84146; 85025; 93005; 96365; 96374; J1953; J2060

== ENCOUNTER 2019-07-25 10:05 | Emergency (ER) | payer MEDICARE ==
[2019-07-25 10:54] LABS: #Basophils 0.1 thou/uL (0.0-0.2); #Eosinphils 0.1 thou/uL (0.0-0.7); #Lymphocytes 0.9 thou/uL (1.20-3.40); #Monocytes 0.6 thou/uL (0.11-0.59); #Neutrophils 4.6 thou/uL (1.40-6.50); %Basophils 1.8 % (0.0-1.0); %Eosinophils 1.4 % (0.0-10.0); %Lymphocytes 14.5 % (21.0-51.0); %Monocytes 9.6 % (0.0-10.0); %Neutrophils 72.7 % (42.0-75.0); Hemoglobin 12.5 g/dL (14.0-18.0); Mean Corpuscular HGB CONC 33.4 g/dL (32.0-36.0); Mean Corpuscular Hemoglobin 31.6 pg (27.0-31.0); Mean Corpuscular Volume 94.4 fL (78.0-98.0); Mean Platelet Volume 7.1 fL (7.4-10.4); Platelet Count 301 thou/uL (130-400); RBC Distribution Width 13.2 % (11.5-14.5); Red Blood Cell (RBC) Count 3.95 mill/uL (4.70-6.10); White Blood Cell (WBC) Count 6.4 thou/uL (4.8-10.8)
[2019-07-25 11:16] LABS: ALT (SGPT) 17 U/L (8-55); AST (SGOT) 19 U/L (5-34); Acetaminophen Less than 6.0 mcg/mL (10.0-30.0); Albumin 3.9 g/dL (3.5-5.0); Alcohol Less than 10 mg/dL (Less than 10); Alkaline Phosphatase 85 U/L (40-110); Anion Gap 11 mmol/L (10-20); BUN (Urea Nitrogen) 13 mg/dL (8.4-25.7); Bilirubin, Total 0.3 mg/dL (0.2-1.2); Calc. Creatinine Clearance 0 mL/min (70-130); Calcium 9.3 mg/dL (7.8-10.44); Carbon Dioxide 27 mmol/L (22-29); Chloride 110 mmol/L (98-107); Estimated GFR-MDRD 72; Globulin 2.9 g/dL (2.4-3.5); Glucose 101 mg/dL (70-105); Potassium 3.7 mmol/L (3.5-5.1); Protein, Total 6.8 g/dL (6.0-8.3); Salicylate Less than 8.0 mg/dL (15.0-30.0); Sodium 144 mmol/L (136-145)
--- NOTE | 2019-07-25 11:29 | CT ---
CT BRAIN WITHOUT CONTRAST: HISTORY: Altered mental status. Syncope. COMPARISON: 05/07/2019 FINDINGS: The ventricular and cisternal system is within normal limits. There are no signs of intracerebral hem orrhage or extraaxial fluid collection. The mastoid air cells and visualized sinuses are clear. IMPRESSION: No acute intracranial abnormalities. POS: [facility]
--- NOTE | 2019-07-25 11:36 | RAD ---
PORTABLE CHEST: HISTORY: Syncope. COMPARISON: 05/07/2019 FINDINGS: Heart size and mediastinum are within normal limits. Lungs are clear of infiltrates. No significant b jose findings. IMPRESSION: No active intrathoracic disease. POS: [facility]
[2019-07-25 12:02] LABS: Bacteria/HPF None Seen HPF (None Seen); Bilirubin Negative (Negative); Blood, Urine Negative (Negative); Clarity Clear (Clear); Glucose, Urine (Dipstick) Normal (Negative); Leukocyte Negative Leu/uL (Negative); Nitrite Negative (Negative); Protein, Urine (Dipstick) 30 mg/dL (Neg-Trace); RBC/HPF 0-3 HPF (0-3); Squamous Epithelial None Seen HPF (0-3); WBC/HPF 0-3 HPF (0-3)
[2019-07-25 12:14] LABS: Amphetamine Detected (NotDetected)
[2019-07-25 12:15] LABS: Barbiturates Screen Not Detected (NotDetected); Benzodiazepine Screen Not Detected (NotDetected); Cocaine Metabolite Screen Not Detected (NotDetected); Medtox Control Line Valid? VALID (VALID); Medtox Reader # READER 1; Methadone Not Detected (NotDetected); Methamphetamine Not Detected (NotDetected); Opiate Screen Not Detected (NotDetected); Oxycodone Screen Not Detected (NotDetected); Phencyclidine (PCP) Detected (NotDetected); THC/Cannabinoid Screen Not Detected (NotDetected); Tricyclic Screen Not Detected (NotDetected)
== END 2019-07-25 14:45 | disposition home or self-care (01) ==
LOC: ERS 10:05
DX: S40.812A Abrasion of left upper arm, initial encounter (principal); S40.811A Abrasion of right upper arm, initial encounter; S80.812A Abrasion, left lower leg, initial encounter; H66.91 Otitis media, unspecified, right ear; F16.10 Hallucinogen abuse, uncomplicated; F15.10 Other stimulant abuse, uncomplicated; F31.9 Bipolar disorder, unspecified; F17.210 Nicotine dependence, cigarettes, uncomplicated; F17.220 Nicotine dependence, chewing tobacco, uncomplicated; X58.XXXA Exposure to other specified factors, initial encounter
CPT/HCPCS: 51701; 70450; 71045; 80053; 80306; 80307; 81003; 81015; 82140; 84443; 85025; 93005; 96360

== ENCOUNTER 2019-08-14 12:01 | Inpatient (IN) | payer MEDICARE, OTHER ==
[~2019-08-14 12:01] MED LIST: Iopamidol-370 76% 500 ML 1 ML ONE
[2019-08-14] MEDS ORDERED: Pantoprazole 40 MG VIAL ONE (13:30)
--- NOTE | 2019-08-14 13:42 | RAD ---
Portable chest: HISTORY: Chest pain COMPARISON: none FINDINGS: Lung deng are clear. Heart and mediastinum appear unremarkable. Vascularity is normal. Visualized osseous structures unremarkable. IMPRESSION: No acute finding
[2019-08-14 13:43] LABS: #Basophils 0.1 thou/uL (0.0-0.2); #Eosinphils 0.1 thou/uL (0.0-0.7); #Lymphocytes 1.4 thou/uL (1.20-3.40); #Monocytes 0.5 thou/uL (0.11-0.59); #Neutrophils 3.6 thou/uL (1.40-6.50); %Basophils 1.5 % (0.0-1.0); %Eosinophils 2.4 % (0.0-10.0); %Lymphocytes 24.9 % (21.0-51.0); %Monocytes 8.1 % (0.0-10.0); %Neutrophils 63.2 % (42.0-75.0); Hemoglobin 15.8 g/dL (14.0-18.0); Mean Corpuscular HGB CONC 33.9 g/dL (32.0-36.0); Mean Corpuscular Hemoglobin 32.2 pg (27.0-31.0); Mean Corpuscular Volume 94.9 fL (78.0-98.0); Mean Platelet Volume 9.1 fL (7.4-10.4); Platelet Count 297 thou/uL (130-400); Red Blood Cell (RBC) Count 4.91 mill/uL (4.70-6.10); White Blood Cell (WBC) Count 5.7 thou/uL (4.8-10.8)
[2019-08-14 14:12] LABS: Acetaminophen Less than 6.0 mcg/mL (10.0-30.0); Alcohol Less than 10 mg/dL (Less than 10); Lipase 28 U/L (8-78); Salicylate Less than 8.0 mg/dL (15.0-30.0)
--- NOTE | 2019-08-14 14:16 | ULT ---
TESTICULAR ULTRASOUND: Date: 08/14/2019 INDICATION: Testicular pain. FINDINGS: Both testicles have a normal sonographic appearance. Testicles have symmetric size and appearance. Color Doppler and spectral analysis demonstrates blood flow to both testicles. No evidence of hydroce le. The epididymides appear unremarkable. Technologist notes a lymph node in the right inguinal region, which corresponds to the area of concer n. This lymph node does not appear pathologic. IMPRESSION: Unremarkable testicular ultrasound. POS: [facility]
[2019-08-14 14:20] LABS: ALT (SGPT) 16 U/L (8-55); AST (SGOT) 27 U/L (5-34); Albumin 3.9 g/dL (3.5-5.0); Alkaline Phosphatase 105 U/L (40-110); Anion Gap 16 mmol/L (10-20); BUN (Urea Nitrogen) 27 mg/dL (8.4-25.7); Bilirubin, Total 0.4 mg/dL (0.2-1.2); CK (CPK) 24 U/L (30-200); Calc. Creatinine Clearance 0 mL/min (70-130); Calcium 9.8 mg/dL (7.8-10.44); Carbon Dioxide 25 mmol/L (22-29); Chloride 104 mmol/L (98-107); Estimated GFR-MDRD 76; Globulin 3.7 g/dL (2.4-3.5); Glucose 101 mg/dL (70-105); Potassium 4.9 mmol/L (3.5-5.1); Protein, Total 7.6 g/dL (6.0-8.3); Sodium 140 mmol/L (136-145)
--- NOTE | 2019-08-14 14:37 | CT ---
CT abdomen and pelvis with IV contrast. Oral contrast was not administered. INDICATIONS: Abdominal pain COMPARISON: None FINDINGS: Lung bases are clear Liver, spleen, and pancreas appear unremarkable. Stomach and duodenum appear unremarkable. Adrenal glands appear normal. Kidneys appear unremarkable. Collecting structures and urinary bladder appear unremarkable. Small bowel loops are normal caliber and exhibit normal fold pattern. Appendix is identified and appears unremarkable. Prominent stool throughout the colon. Colon otherwise unremarkable. Aorta is normal caliber. No evidence of retroperitoneal or mesenteric adenopathy. Pelvic structures appear unremarkable. Subcutaneous tissues, abdominal wall, and muscular structures appear unremarkable. Osseous structures appear unremarkable. IMPRESSION: No acute findings Prominent stool throughout the colon
[2019-08-14 17:37] VITALS: BMI 28.5
--- NOTE | 2019-08-14 17:50 | PDOC.HHP ---
Hospitalist HPI - History of Present Illness blood in stool, abdominal pain History of Present Illness: This is a 54 year old male with past medical history of TBI, seizure, bipolar, depression who presented to the emergency room with abdominal pain. The patient reports intermittent rectal bleeding for the past one year and has not gotten it checked out. He has no PCP. Yesterday at 8:00 am, the patient reports developing sharp abdominal pain that radiated to his legs and his back. He described it as 10/10 and he proceeded to vomit a few times after eating yesterday so he came to the ER. The patient reports mucusy discharge from his anal area and states that it has a foul smell over the past few days. He denies recent sexual activity. He has had a colonoscopy in the past 4-5 years ago and said he had some polyps removed, but not all of them. He does not take NSAIDS or blood thinners. His last meal was macaroni yesterday. He denies fevers, chills or recent travel, but reports having a runny nose, sore throat and dry cough for the past few days as well. He also reports suicidal ideation and tried to hang himself in nursing home earlier this week. He also complains of visual hallucinations with a girl following him around everywhere and describes her as his guardian. He has history of bipolar and possibly is supposed to be taking lithium but doesn't recall. [facility] was supposed to evaluate him in the nursing home earlier this week. ED Course: The patient presented with normal vitals. CBC and BMP were unremarkable. CT abdomen showed no abnormality aside from stool in the colon. Testicular ultrasound showed right inguinal lymph node but no other abnormality. UA negative. U tox positive for amphetamine and PCP Hospitalist ROS - Review of Systems Constitutional: denies: fever, chills Eyes: denies: vision change ENT: denies: ear pain, ear discharge Respiratory: reports: cough. denies: shortness of breath Cardiovascular: denies: chest pain, palpitations, orthopnea, paroxysmal noc. dyspnea Gastrointestinal: reports: nausea, abdominal pain. denies: vomiting, diarrhea, constipation Genitourinary: denies: dysuria, frequency Musculoskeletal: denies: neck pain, shoulder pain Skin: denies: lesions Other: anal rash with foul discharge - Medication Medications: [place] Hospitalist History - Past Medical History Other Medical History: TBI history Bipolar Disorder - Past Surgical History Other Surgical History: Left facial surgery Right ankle - Family History Other Family History: Patient does not know - Social History Smoking Status: Former smoker Alcohol: reports: None Drugs: reports: Other (former cocaine user and marijuana user) Other Social History: Patient denies homicidal ideation. He has a masters degree in [employer]. - Exam General Appearance: NAD, awake alert Eye: PERRL, anicteric sclera ENT: normocephalic atraumatic, no oropharyngeal lesions Neck: no JVD Heart: RRR, no murmur, no gallops, no rubs Respiratory: CTAB, no wheezes, no rales, no ronchi Gastrointestinal: soft, normal bowel sounds Gastrointestinal - other findings: mild RLQ and LLQ tenderness. Mild ext hermorrhoid. Sig erythema in anus Extremities: no cyanosis, no clubbing, no edema Skin: normal turgor, no lesions, no rashes Skin - other findings: rectal area noted to be erythematous with mucus discharge. Poss fungal Neurological: cranial nerve grossly intact, normal sensation to touch, no weakness Neurological - other findings: pt with diminished sensation bilateral feet. Babinski negative Musculoskeletal: normal tone, normal strength, no muscle wasting Psychiatric: A&O x 3 Hospitalist Results - Labs Result Diagrams: 08/14/19 13:29 08/14/19 13:29 Lab results: WBC 5.7 thou/uL (4.8-10.8) 08/14/19 13:29 Hgb 15.8 g/dL (14.0-18.0) 08/14/19 13:29 Hct 46.6 % (42.0-52.0) 08/14/19 13:29 MCV 94.9 fL (78.0-98.0) 08/14/19 13:29 Plt Count 297 thou/uL (130-400) 08/14/19 13:29 Neutrophils % 63.2 % (42.0-75.0) 08/14/19 13:29 Sodium 140 mmol/L (136-145) 08/14/19 13:29 Potassium 4.9 mmol/L (3.5-5.1) 08/14/19 13:29 Chloride 104 mmol/L (98-107) 08/14/19 13:29 Carbon Dioxide 25 mmol/L (22-29) 08/14/19 13:29 BUN 27 mg/dL (8.4-25.7) H 08/14/19 13:29 Creatinine 1.02 mg/dL (0.7-1.3) 08/14/19 13:29 Glucose 101 mg/dL (70-105) 08/14/19 13:29 Calcium 9.8 mg/dL (7.8-10.44) 08/14/19 13:29 Total Bilirubin 0.4 mg/dL (0.2-1.2) 08/14/19 13:29 AST 27 U/L (5-34) 08/14/19 13:29 ALT 16 U/L (8-55) 08/14/19 13:29 Alkaline Phosphatase 105 U/L (40-110) 08/14/19 13:29 Creatine Kinase 24 U/L (30-200) L 08/14/19 13:29 Troponin I Less than 0.010 ng/mL (< 0.028) 08/14/19 13:29 Serum Total Protein 7.6 g/dL (6.0-8.3) 08/14/19 13:29 Albumin 3.9 g/dL (3.5-5.0) 08/14/19 13:29 Lipase 28 U/L (8-78) 08/14/19 13:29 - EKG Interpretation EKG: normal Hospitalist H&P A/P - Plan Plan: This is a 54 year old male with PMH of TBI, seizure, who presented with rectal bleeding and mucus discharge, abdominal pain #Rectal bleeding #Abdominal pain - possibly constipation - has history of polyp in past. Seems to have possibly small hemorrhoid in anal area - Hb stable - patient does not follow up with GI doctor currently, last one he saw was in [facility] - will place GI consult for eval of outpt colonoscopy #Poss anal yeast infection - has erythema around anal area with mucus discharge - will send bacterial swab, fungal swab, HSV, chlamydia/gonorrhea #Peripheral neuropathy in toes - check MRI lumbar spine - HbA1C - RPR - B12/folate - TSH normal #Suicidal ideation -[facility] consult Code status: full code given suicidal
[2019-08-14] MEDS ORDERED: Ondansetron PF 4 MG/2 ML Vial IVP PRN (17:54)
[2019-08-14] MEDS ORDERED: Ondansetron ODT 4 MG TAB SL PRN (17:54)
[2019-08-14] MEDS ORDERED: Haloperidol Lactate 5 MG/ML VIAL SLOW IVP PRN (18:07)
[2019-08-14] MEDS ORDERED: Polyethylene Glycol 3350 17 GM Packet PO PRN (18:12)
[2019-08-14] MEDS ORDERED: Acetaminophen 325 MG TAB PO PRN (18:23)
[2019-08-14 18:30] LABS: Hemoglobin A1c 5.3 % (4.0-6.0)
[2019-08-14] MEDS: Sodium Chloride 0.9% 1,000 ML IV SCH (18:36)
[2019-08-14] MEDS: traMADol HCl 50 MG TAB PO PRN (18:39)
[2019-08-14 18:49] LABS: Syphilis Antibody Nonreactive (Nonreactive); Syphilis Antibody Index 0.05 S/CO (<1.00 Non-Reactive)
[2019-08-14] MEDS ORDERED: FLU VACC QS2019-20(6MOS UP)/PF 60 MCG/0.5 ML SYRINGE IM ONE (21:00)
[2019-08-15] MEDS: Sodium Chloride 0.9% 1,000 ML IV SCH (02:07)
[2019-08-15] MEDS: traMADol HCl 50 MG TAB PO PRN ×2 (05:15→16:56)
[2019-08-15] MEDS ORDERED: Clotrimazole 1% Cream 15 GM TUBE TOP SCH ×2 (11:45→21:00)
[2019-08-15] MEDS ORDERED: Clotrimazole 1 % Cream 30 GM TUBE TOP SCH (12:00)
--- NOTE | 2019-08-15 13:32 | PDOC.HOSPP ---
- Subjective Encounter Date: 08/15/19 Encounter Time: 13:31 Subjective: Pt still endorses abdominal pain, states it is 10/10, however doesn't appear to be that significant. He is tolerating clear liquid diet. Last BM was two days ago per patient He denies nausea or vomiting He is still suicidal Rectal discharge positive for strep infection He complains of back pain - Objective Vital Signs & Weight: Vital Signs (12 hours) Temp Pulse Resp BP Pulse Ox 08/15/19 11:03 98 F 60 16 107/66 97 08/15/19 07:10 98.1 F 65 16 113/76 94 L 08/15/19 04:13 98.1 F 61 18 110/66 95 Weight Weight 205 lb I&O: 08/14/19 08/15/19 08/16/19 06:59 06:59 06:59 Output Total 800 Balance -800 Result Diagrams: 08/14/19 13:29 08/14/19 13:29 Hospitalist ROS - Review of Systems Constitutional: denies: fever, chills Respiratory: denies: dry, pleuritic pain - Medication Medications: Active Medications Generic Name Dose Route Start Last Admin Trade Name Freq PRN Reason Stop Dose Admin Clotrimazole 0 gm 08/15/19 12:00 08/15/19 12:34 Lotrimin 1% Cream TOP 08/15/19 13:45 1 tube NOW JAI Administration Tramadol HCl 50 mg 08/14/19 18:23 08/15/19 05:15 Ultram PO 50 mg Q6H PRN Administration Severe Pain (7-10) - Exam General Appearance: NAD, awake alert General - other findings: laying in bed Eye: PERRL, anicteric sclera ENT: normocephalic atraumatic, no oropharyngeal lesions Neck: no JVD Heart: RRR, no murmur, no gallops, no rubs, normal peripheral pulses Respiratory: CTAB, no wheezes, no rales, no ronchi Gastrointestinal: soft, non-distended Gastrointestinal - other findings: RLQ and LLQ tenderness Extremities: no cyanosis, no clubbing, no edema Skin: normal turgor, no lesions, no rashes Neurological - other findings: pt unable to feel me touching toes or plantar surface of foot. Musculoskeletal - other findings: can lift up both legs slightly Hosp A/P - Plan This is 54 year old male who presented with abdominal pain, #Rectal bleeding #Abdominal pain - possibly constipation - has history of polyp in past with possible small hemorrhoid - Hb stable - GI consult pending for possible colonoscopy. CT abdomen unremarkable - will order miralax #Poss anal yeast infection #Group B strep infection rectal area - continue clotrimazole. Fungal cultures pending - started amoxicillin 500 mg TID - HSV PCR, GC culture pending #Peripheral neuropathy in toes - MRI lumbar spine pending - HbA1C unremarkable - RPR negative - B12/folate are normal - TSH normal #Suicidal ideation -[facility] consult upon discharge
[2019-08-15 14:02] LABS: Ref Lab Test Ordered GC/CHLAM NAA RECTAL; Reference Lab Name LABCORP
[2019-08-15] MEDS: Lorazepam 1 MG TAB PO PRN (15:46)
--- NOTE | 2019-08-15 16:52 | MRI ---
EXAM: MRI Lumbar Spine WO Con PROVIDED CLINICAL HISTORY: Numbness in feet COMPARISON: None FINDINGS: Lumbar alignment appears normal. Vertebral body heights appear preserved. Disc space narrowing and en dplate degenerative change at L5-S1. Bilateral facet arthritis at L4-5 and L5-S1. Left foraminal disc protrusion at L3-4 with mild-moderate foraminal narrowing. No additional significant central can al or foraminal narrowing noted throughout. The conus medullaris is normal in signal and terminates at an appropriate level. The visualized extraspinal soft tissues appear unremarkable. IMPRESSION: Lumbar degenerative change as described.
[2019-08-15] MEDS: Clotrimazole 1 % Cream 30 GM TUBE TOP SCH (20:28)
--- NOTE | 2019-08-15 23:17 | CON ---
DATE OF CONSULTATION: 08/15/2019 CHIEF COMPLAINT: Rectal pain, rectal bleeding, purulent discharge from the rectum, lower abdominal pain. HISTORY OF PRESENT ILLNESS: Mr. Hernandez is a 54-year-old man, who has had rectal pain and rectal bleeding with red blood on and off over the last year. For the last 4 days, he has had increase in the rectal pain and lower abdominal cramping pain. He has had purulent discharge from the rectum. He has chronic constipation, has a bowel movement around once per week. He has anal pain with bowel movements. He states he had a colonoscopy 4 so years ago and was told that he had a polyp that was too large to remove. He states that this was further inside. He was supposed to be referred for some other type of procedure to remove the polyp, but he never followed through with this. He has had a foul smell and rash with the discharge around the perirectal area. His pain comes and goes and intensifies when he has bowel movement. The pain can radiate toward his abdomen, legs, and back. PAST MEDICAL HISTORY: Colon polyp per his report, which was not removed. His last colonoscopy was in [place]. He has a history of bipolar disorder, and traumatic brain injury. PAST SURGICAL HISTORY: Face surgery, ankle surgery, colonoscopy. FAMILY HISTORY: The patient does not know. SOCIAL HISTORY: Prior cocaine use and marijuana use. No alcohol. He quit smoking. He is currently incarcerated. He also had some reported suicidal ideation, is being monitored from that standpoint as well. ALLERGIES: PENICILLIN. CURRENT MEDICATIONS: 1. Topical clotrimazole cream. 2. Haloperidol as needed. 3. MiraLAX 17 g daily. 4. Prior to admission, he was reportedly on Keppra twice daily. REVIEW OF SYSTEMS: Negative x10 systems reviewed, except as stated in the history of present illness. PHYSICAL EXAMINATION: VITAL SIGNS: Temperature 98.3, pulse 60, blood pressure 106/63. GENERAL: He is in no acute distress. Alert and oriented x3. HEENT: Eyes have no scleral icterus. Oropharynx is clear without lesions. No cervical or supraclavicular lymphadenopathy. LUNGS: Clear to auscultation bilaterally. HEART: Regular rate and rhythm without murmur. ABDOMEN: Soft, nontender, and nondistended. Bowel sounds are present. EXTREMITIES: No lower extremity edema. RECTAL: Reveals a crack skin along the gluteal cleft. He has pink skin all around the inner skin around the gluteal area. Rectal exam reveals hard stool in the rectal vault, which is brown. I do not see an obvious fissure. He does not have obvious significant pain with rectal exam. LABORATORY DATA: White blood cell count 5.7, hemoglobin 15.8, platelets 297, creatinine 1.02, bilirubin 0.4. AST 27, ALT 16, and alkaline phosphatase 105, albumin 3.9. IMPRESSION: 1. Rectal bleeding and rectal pain. He has had purulent discharge from the rectum. He could have inflammatory bowel disease or cancer. He could have an infectious process such as gonorrhea, chlamydia in the rectal mucosa. 2. History of colon polyp by his last colonoscopy around 4 years ago, which he states was too large to be removed at the time. RECOMMENDATIONS: Colonoscopy tomorrow. Job ID: [id number]
[2019-08-16] MEDS: Polyethylene Glycol 3350 17 GM Packet PO SCH (08:18)
[2019-08-16] MEDS: Clotrimazole 1 % Cream 30 GM TUBE TOP SCH ×2 (08:18→20:11)
[2019-08-16] MEDS: traMADol HCl 50 MG TAB PO PRN ×2 (08:28→20:15)
[2019-08-16] MEDS: Lorazepam 1 MG TAB PO PRN (08:29)
--- NOTE | 2019-08-16 12:48 | PRG ---
DATE OF SERVICE: 08/16/2019 SUBJECTIVE: Mr. Hernandez has had some burning around the rectal area, but otherwise no acute issues. He is still being monitored for suicidal ideation. OBJECTIVE: VITAL SIGNS: Temperature 97.8, pulse 66, and blood pressure 94/67. GENERAL: He is in no acute distress. Alert and oriented x3. LUNGS: Clear to auscultation bilaterally. HEART: Regular rate and rhythm without murmur. ABDOMEN: Soft, nontender, and nondistended. Bowel sounds are present. IMPRESSION: 1. Hematochezia and chronic rectal pain and mucus or purulent discharge from the rectum. Rule out neoplastic process, inflammatory bowel disease, or could be infectious process. These symptoms, however, had been chronic. 2. History of colon polyp, reportedly too large to resect around 4 years ago, which has not had followup since that time. RECOMMENDATIONS: We will plan bowel prep today for colonoscopy tomorrow. Job ID: [id number]
[2019-08-16] MEDS ORDERED: GoLYTELY 4,000 ml Bottle PO SCH (14:00)
[2019-08-16] MEDS ORDERED: Preparation H Suppository PR PRN (16:47)
--- NOTE | 2019-08-16 16:47 | PDOC.HOSPP ---
- Subjective Encounter Date: 08/16/19 Encounter Time: 13:00 Subjective: The patient states he has 7/10 abdominal pain still. He still has mucus from rectal area which has improved some. Reports a lot of itching in the rectal area. No blood in his stools. He is tolerating a diet, was seen to be eating ice today. Bowel prep ordered for colonoscopy. - Objective Vital Signs & Weight: Vital Signs (12 hours) Temp Pulse Resp BP Pulse Ox 08/16/19 15:52 97.8 F 63 16 121/65 96 08/16/19 12:00 95 08/16/19 11:00 97.8 F 60 16 94/67 95 08/16/19 07:04 97.9 F 67 16 112/63 94 L Weight Weight 205 lb I&O: 08/15/19 08/16/19 08/17/19 06:59 06:59 06:59 Intake Total 1475 Output Total 800 900 Balance -800 575 Result Diagrams: 08/14/19 13:29 08/14/19 13:29 Hospitalist ROS - Review of Systems Constitutional: denies: fever, chills - Medication Medications: Active Medications Generic Name Dose Route Start Last Admin Trade Name Freq PRN Reason Stop Dose Admin Clotrimazole 0 gm 08/15/19 21:00 08/16/19 08:18 Lotrimin 1% Cream TOP 1 applic BID JAI Administration Lorazepam 0.5 mg 08/14/19 18:08 08/16/19 08:29 Ativan PO 0.5 mg Q4H PRN Administration Anxiety Polyethylene Glycol 17 gm 08/16/19 09:00 08/16/19 08:18 Miralax PO 17 gm DAILY JIA Administration Polyethylene Glycol/Electrolytes 4,000 ml 08/16/19 14:00 08/16/19 14:04 Golytely PO 08/16/19 21:00 4,000 ml 1400 JAI Administration Tramadol HCl 50 mg 08/14/19 18:23 08/16/19 08:28 Ultram PO 50 mg Q6H PRN Administration Severe Pain (7-10) - Exam General Appearance: NAD, awake alert Eye: PERRL, anicteric sclera ENT: normocephalic atraumatic, no oropharyngeal lesions Neck: no JVD Heart: RRR, no murmur, no gallops, no rubs Respiratory: CTAB, no wheezes, no rales, no ronchi Gastrointestinal: soft Gastrointestinal - other findings: mild diffuse tenderness Extremities: no cyanosis, no clubbing, no edema Skin: normal turgor, no lesions, no rashes Neurological: cranial nerve grossly intact, normal sensation to touch, no focal deficits, no new deficit Neurological - other findings: patient has diminished sensation in his toes Hosp A/P - Plan MRI lumbar spine: lumbar degenerative changes This is 54 year old male who presented with abdominal pain, rectal bleeding #Rectal bleeding #Abdominal pain - possibly constipation - has history of polyp in past with possible small hemorrhoid - Hb stable. Patient is planned for colonoscopy tomorrow. CT abdomen unremarkable. - continue miralax for constipation - prep H prn for itching #Poss anal yeast infection #Group B strep infection rectal area - continue clotrimazole. Fungal cultures pending - continue amoxicillin 500 mg TID - HSV PCR, GC culture pending #Peripheral neuropathy in toes - MRI lumbar spine showed degenerative changes - HbA1C unremarkable - RPR negative - B12/folate are normal - TSH normal #Suicidal ideation -MHMR consult upon discharge Dispo: inpatient psych when stable for discharge
[2019-08-17 05:26] LABS: Hemoglobin 14.5 g/dL (14.0-18.0); Mean Corpuscular HGB CONC 34.7 g/dL (32.0-36.0); Mean Corpuscular Hemoglobin 32.5 pg (27.0-31.0); Mean Corpuscular Volume 93.8 fL (78.0-98.0); Mean Platelet Volume 7.6 fL (7.4-10.4); Platelet Count 273 thou/uL (130-400); RBC Distribution Width 12.4 % (11.5-14.5); Red Blood Cell (RBC) Count 4.47 mill/uL (4.70-6.10); White Blood Cell (WBC) Count 5.5 thou/uL (4.8-10.8)
[2019-08-17 05:51] LABS: Anion Gap 11 mmol/L (10-20); BUN (Urea Nitrogen) 15 mg/dL (8.4-25.7); Calc. Creatinine Clearance 125 mL/min (70-130); Calcium 9.3 mg/dL (7.8-10.44); Carbon Dioxide 28 mmol/L (22-29); Chloride 101 mmol/L (98-107); Estimated GFR-MDRD 88; Glucose 93 mg/dL (70-105); Potassium 4.1 mmol/L (3.5-5.1); Sodium 136 mmol/L (136-145)
[2019-08-17] MEDS: Polyethylene Glycol 3350 17 GM Packet PO SCH (09:38)
[2019-08-17] MEDS: Clotrimazole 1 % Cream 30 GM TUBE TOP SCH ×2 (09:38→22:54)
[2019-08-17] MEDS ORDERED: GoLYTELY 4,000 ml Bottle PO SCH ×2 (10:00→17:00)
[2019-08-17] MEDS ORDERED: Ondansetron PF 4 MG/2 ML Vial SLOW IVP PRN (15:32)
--- NOTE | 2019-08-17 16:41 | PDOC.HOSPP ---
- Subjective Encounter Date: 08/17/19 Encounter Time: 12:00 Subjective: The patient continues to have 8/10 abdominal pain. No rectal bleeding. He did not finish drinking all of the prep today, will need to resume drinking at 5 pm. Colonoscopy rescheduled for tomorrow - Objective Vital Signs & Weight: Vital Signs (12 hours) Temp Pulse Resp BP Pulse Ox 08/17/19 16:00 95 08/17/19 15:23 98.3 F 84 16 104/63 95 08/17/19 12:00 95 08/17/19 11:50 98.2 F 73 18 102/66 95 08/17/19 08:00 91 L 08/17/19 07:35 98.3 F 72 18 94/52 L 91 L Weight Weight 205 lb I&O: 08/16/19 08/17/19 08/18/19 06:59 06:59 06:59 Intake Total 1475 5250 Output Total 900 1200 Balance 575 4050 Result Diagrams: 08/17/19 05:04 08/17/19 05:04 Hospitalist ROS - Review of Systems Constitutional: denies: fever, chills - Medication Medications: Active Medications Generic Name Dose Route Start Last Admin Trade Name Freq PRN Reason Stop Dose Admin Clotrimazole 0 gm 08/15/19 21:00 08/17/19 09:38 Lotrimin 1% Cream TOP 1 applic BID JAI Administration Lorazepam 0.5 mg 08/14/19 18:08 08/16/19 08:29 Ativan PO 0.5 mg Q4H PRN Administration Anxiety Polyethylene Glycol 17 gm 08/16/19 09:00 08/17/19 09:38 Miralax PO 17 gm DAILY JAI Administration Tramadol HCl 50 mg 08/14/19 18:23 08/16/19 20:15 Ultram PO 50 mg Q6H PRN Administration Severe Pain (7-10) - Exam General Appearance: NAD, awake alert Eye: PERRL, anicteric sclera ENT: normocephalic atraumatic, no oropharyngeal lesions Neck: supple, symmetric, no JVD Heart: RRR, no murmur, no gallops, no rubs Respiratory: CTAB, no wheezes, no rales, no ronchi Gastrointestinal: soft, non-tender, non-distended, normal bowel sounds Extremities: no cyanosis, no clubbing, no edema Skin: normal turgor, no lesions Hosp A/P - Plan MRI lumbar spine: lumbar degenerative changes This is 54 year old male who presented with abdominal pain, rectal bleeding #Rectal bleeding #Abdominal pain - possibly constipation - has history of polyp in past with possible small hemorrhoid - Hb stable. Patient is planned for colonoscopy tomorrow. CT abdomen unremarkable. - continue miralax for constipation - prep H prn for itching #Poss anal yeast infection #Group B strep infection rectal area - continue clotrimazole. Fungal cultures pending - HSV PCR, GC culture pending. Bacterial culture showing group B strep and staph aureous. Will treat for chlamydia/gonorrhea empirically with IM ceftriaxone and doxycycline for 7 days. 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
[2019-08-17] MEDS ORDERED: cefTRIAXone\\ROCEPHIN 250 MG VIAL IM SCH (17:00)
[2019-08-17] MEDS ORDERED: Doxycycline 100 MG CAP PO SCH (17:00)
[2019-08-17] MEDS ORDERED: Lidocaine 1% (PF) 30 ML VIAL FS SCH (18:00)
--- NOTE | 2019-08-17 22:46 | PRG ---
DATE OF SERVICE: 08/17/2019 SUBJECTIVE: Mr. Hernandez continued to have dark stools despite the prep last night and this morning. He has continued with additional prep today to attempt to clear for colonoscopy for tomorrow. OBJECTIVE: ABDOMEN: Soft. Minimal tenderness at this time. IMPRESSION: 1. Intermittent hematochezia, lower abdominal pain and rectal pain. 2. History of colon polyp, which was reportedly not removed 4 years ago, are too big to be removed 4 years ago. However, he did not have followup after that. RECOMMENDATIONS: Colonoscopy tomorrow. Job ID: [id number]
[2019-08-17] MEDS: traMADol HCl 50 MG TAB PO PRN (22:54)
[2019-08-18] MEDS ORDERED: Doxycycline 100 MG CAP PO SCH (09:00)
[2019-08-18] MEDS ORDERED: PHENYLEPHRINE-NS 100 MCG/ML 10 ML SYRINGE ONE (10:33)
[2019-08-18] MEDS ORDERED: PROPOFOL 200 MG/20 ML VIAL ONE (10:33)
[2019-08-18] MEDS: Polyethylene Glycol 3350 17 GM Packet PO SCH (11:50)
[2019-08-18] MEDS: Clotrimazole 1 % Cream 30 GM TUBE TOP SCH (11:53)
[2019-08-18] MEDS ORDERED: Hydrocortisone 2.5%/Pramoxine 1% CRM 30 GM TUBE TOP SCH (15:00)
--- NOTE | 2019-08-18 16:12 | OP ---
DATE OF PROCEDURE: 08/18/2019 PROCEDURE PERFORMED: Colonoscopy. PREMEDICATION: Given by Anesthesiology Department. PREPROCEDURE DIAGNOSES: 1. Reported history of rectal bleeding. 2. Abdominal pain and rectal pain. 3. Reported history of colon polyps. POSTPROCEDURE DIAGNOSES: 1. Normal colonoscopy without any mucosal abnormality or polyp. 2. Perirectal erythema without any lesion or fissure seen. 3. No hemorrhoids seen. DESCRIPTION OF PROCEDURE: Written consents were obtained prior to procedure. A perirectal examination was performed and showed a perirectal erythema with a sharp demarcated edge. There were no breaks in the skin. No obvious fissure was seen. The endoscope was advanced to the cecum. The sigmoid colon was somewhat redundant. The quality of the bowel prep was good. The ileocecal valve and appendiceal orifice were visualized and appeared normal. The cecum, ascending colon, hepatic flexure, transverse colon, splenic flexure, descending colon, and sigmoid colon appeared normal. Rectal vault was fully insufflated and inspected closely. No abnormality was seen. Retroflexion did not show any abnormality. The patient does not have any external or internal hemorrhoids. Careful inspection with the scope through the anal canal was normal without any obvious fissure. ASSESSMENT: 1. Normal colonoscopy. 2. Normal anal exam without any obvious fissure. 3. Perirectal erythema, uncertain whether this is a fungal infection or nonspecific perirectal inflammation. RECOMMENDATIONS: 1. Topical treatment with pramoxine/hydrocortisone. 2. Continue with topical clotrimazole. 3. The patient can be discharged from GI standpoint as his CT and colonoscopy are normal. Job ID: [id number]
[2019-08-18 16:41] VITALS: BP 99/60; TEMP 98.5
--- NOTE | 2019-08-19 07:18 | DIS ---
DATE OF ADMISSION: 08/16/2019 DATE OF DISCHARGE: 08/18/2019 PROCEDURE: Colonoscopy. CONSULTATIONS: Cade Hutson MD with Gastroenterology. BRIEF HISTORY OF PRESENT ILLNESS: This is a 54-year-old male with a past medical history of colon polyps, TBI, seizure, bipolar, depression, who presented to the emergency room with abdominal pain, intermittent rectal bleeding. The patient describes his pain as 10/10 and reported vomiting a few times. He also reported anal pain and anal discharge with a foul smell over the past few days. The patient also reported suicidal ideation and tried to hang himself in halfway earlier this week. He also complained of visual hallucinations as well. Upon presentation to the ER, the patient had a CT scan of his abdomen, which showed no abnormality aside from stool in his colon. He had a testicular ultrasound showed a right inguinal lymph node , but no other abnormalities. U-tox was positive for PCP and amphetamines. The patient was admitted for further workup. HOSPITAL COURSE: Rectal bleeding/abdominal pain/possible anal yeast infection versus STD: As mentioned above, the patient had a CT scan of his abdomen, which showed stool in the colon, but no other abnormalities. He did have some mucous like discharge around his anal area. This was swabbed for bacteria, which came back positive for Strep agalactiae and Staph aureus. Fungal swab results are still pending. HSV swab came back negative. Chlamydia and gonorrhea sample are still pending. The patient was treated empirically for chlamydia and gonorrhea and given 1 dose of IV ceftriaxone and will be discharged with 6 more days of doxycycline to complete a 7-day course. The patient did have a colonoscopy done to evaluate for his rectal bleeding and pain, which came out normal. GI was consulted and they started him on pramoxine and hydrocortisone.. The patient states that this helped with his itching and irritation. He will be also discharged with MiraLAX p.r.n. for constipation. He will also be discharged with clotrimazole cream for possible fungal infection. Peripheral neuropathy in the toes: The patient reported numbness in his toes and unable to sense anything in his toes. MRI of his lumbar spine showed degenerative changes. HbA1c was unremarkable at 5.3. Vitamin B12 and folate are normal. TSH was normal. This can be worked up further as an outpatient. Suicidal ideation: The patient reported suicidal thoughts and hallucinations. According to the halfway staff, the patient has been reporting suicidal thoughts for a year. According to the staff, they feel that he says that just to get out of halfway. [facility] was contacted, however, they stated that he is unable to come to an inpatient psychiatric facility since they cannot release his halfway beltran. They recommended the patient follow up with [facility] at the halfway. The patient will be placed on suicide precautions at the halfway. This was discussed with a guard. Positive amphetamine/PCP: The patient's urine tox was positive for these illicit drugs. The patient is advised to stop all illicit drugs. DISCHARGE PHYSICAL EXAMINATION: VITAL SIGNS: Temperature 98.5, heart rate 60, respiratory rate 18, O2 saturation 96% on room air, blood pressure 99/60. GENERAL: The patient is alert, awake, oriented x3. CVS: Regular rate and rhythm with no murmurs, rubs, or gallops. LUNGS: Clear to auscultation bilaterally. ABDOMEN: Positive bowel sounds. Soft, nontender, nondistended. RECTAL: The patient has mild erythema noted on the rectal area. There is no mucousy discharge. EXTREMITIES: No edema. PERTINENT LABORATORY DATA: CBC on 08/16: Unremarkable. BMP on 08/16: Normal. LFTs on : Normal. Vitamin B12: 345. Folate: 9.9. TSH: 1.5. Lipase: 28. UA on 07/25: Shows 30 of protein, trace ketones, 2 of urobilinogen. U-tox: Positive for PCP and amphetamine. Syphilis serology: Negative. Herpes simplex culture of rectal swab: Was negative. Chlamydia and gonorrhea cultures,: pending. Rectal swab culture: positive for Strep agalactiae, Staph aureus, and gram- negative radha. Respiratory virus panel: was negative. Stool occult blood on :was positive. IMAGING: CT abdomen on : Shows no acute findings. Prominent stool throughout the colon. Chest x-ray on : Shows no acute finding. Testicular ultrasound : Shows unremarkable testicular ultrasound. Lumbar spine MRI on 08/14: Shows lumbar degenerative changes with L5-S1 arthritis and L4-L5 arthritis. There is left foraminal disk protrusion at L3-L4 with moderate foraminal narrowing. Colonoscopy: Normal colonoscopy. Normal anal exam without any fissures. Perirectal erythema. DISCHARGE INSTRUCTIONS: The patient should follow up with his PCP in a week. He should follow up with [facility] for his hallucinations and suicidal ideation. He will start taking Seroquel as needed for agitation. He should take doxycycline for 7 more days for Staph aureus infection and possible chlamydia infection. Job ID: [id number] MTDD
[2019-08-19 14:14] LABS: Fungus Stain Final report (.)
--- NOTE | 2019-08-20 09:28 | PQF ---
CAMILLA NG UMA [id number] SURG [id number] CLINICAL DOCUMENTATION CLARIFICATION FORM: POST DISCHARGE Addendum to original discharge summary date: ____ Late entry note date: __ DATE: 08/20/2019 ATTN: EM WADDELL Please exercise your independent, professional judgment in responding to the clarification form. Clinical indicators are provided on the bottom of this form for your review Please check appropriate box(s): kindly clarify the rectal bleeding etiology [ ] Rectal bleeding due to Anal yeast infection [ X ] Rectal bleeding NOS [ ] Other diagnosis [ ] Unable to determine For continuity of documentation, please document condition throughout progress notes and discharge summary. Thank You. CLINICAL INDICATORS - SIGNS / SYMPTOMS / LABS Patient present to the ER with abdominal pain , intermitted rectal bleeding - Documented in Discharge summary on 08/17 by Em Waddell MD Rectal bleeding abdominal pain possible anal yeast infection-Documented in Discharge summary on 08/17 by Em Waddell MD He did have some mucous like discharge around his anal area. This was swabbed for bacteria which came back positive for strep analactiae and stap aureus- Documented in Discharge summary on 08/17 by Em Waddell MD Fungal swab result are still pending-Documented in Discharge summary on 08/17 by Em Waddell MD RISK FACTORS possible anal yeast infection-Documented in Discharge summary on 08/17 by Em Waddell MD TREATMENTS: The patient was treated empirically for chlamydia and gonorrhea and given 1 dose of IV ceftriaxone and will be discharge with 6 more days of doxycycline to complete a 7 days course -Documented in Discharge summary on 08/17 by Em Waddell MD The patient did have a colonoscopy done to evaluate for his rectal bleeding and pain, which came out normal-Documented in Discharge summary on 08/17 by Em Waddell MD GI was consulted and they started him on pramoxine and hydrocortisone- Documented in Discharge summary on 08/17 by Em Waddell MD (This form is maintained as a part of the permanent medical record) 2014 [employer] All Rights Reserved [email or web address]
== END 2019-08-18 19:17 | DRG 378 ==
LOC: ERS 12:01 → SURG B 17:30 → EEVIPCON 17:30 → OBSVTOIN 08-16 11:21
PROVIDERS: ADMIT Internal Medicine; ATTEND Internal Medicine
PROC: 0DJD8ZZ Inspection of Lower Intestinal Tract, Via Natural or Artificial Opening Endoscopic (ICD-10-PCS; principal; 2019-08-18)
DX: K62.5 Hemorrhage of anus and rectum (principal); R45.851 Suicidal ideations; F31.9 Bipolar disorder, unspecified; A54.6 Gonococcal infection of anus and rectum; A56.3 Chlamydial infection of anus and rectum; G40.909 Epilepsy, unspecified, not intractable, without status epilepticus; B95.61 Methicillin susceptible Staphylococcus aureus infection as the cause of diseases classified elsewhere; B96.89 Other specified bacterial agents as the cause of diseases classified elsewhere; K59.00 Constipation, unspecified; M46.86 Other specified inflammatory spondylopathies, lumbar region; K63.5 Polyp of colon; R44.1 Visual hallucinations; Z98.890 Other specified postprocedural states; Z87.891 Personal history of nicotine dependence; G62.9 Polyneuropathy, unspecified; Z88.0 Allergy status to penicillin
CPT/HCPCS: 36415; 71045; 72148; 74177; 76870; 80048; 80053; 80307; 82274; 82550; 82607; 82746; 83036; 83690; 84443; 84484; 85025; 85027; 86780; 86850; 86900; 86901; 87070; 87077; 87102; 87186; 87205; 87206; 87255; 87491; 87591; 87633; 90471; 90686; 93005; 93976; 94760; 96361; 96374; C9113; G0008; J0696; J2001; J2405; J2704; Q9967

== ENCOUNTER 2019-12-16 08:05 | Emergency (ER) | payer OTHER ==
[2019-12-16 09:11] LABS: #Basophils 0.1 thou/uL (0.0-0.2); #Eosinphils 0.1 thou/uL (0.0-0.7); #Lymphocytes 1.4 thou/uL (1.20-3.40); #Monocytes 0.5 thou/uL (0.11-0.59); #Neutrophils 3.2 thou/uL (1.40-6.50); %Eosinophils 2.5 % (0.0-10.0); %Lymphocytes 27.2 % (21.0-51.0); %Monocytes 9.1 % (0.0-10.0); %Neutrophils 60.3 % (42.0-75.0); Mean Corpuscular HGB CONC 33.8 g/dL (32.0-36.0); Mean Corpuscular Hemoglobin 31.8 pg (27.0-31.0); Platelet Count 292 thou/uL (130-400); RBC Distribution Width 12.3 % (11.5-14.5); Red Blood Cell (RBC) Count 4.72 mill/uL (4.70-6.10); White Blood Cell (WBC) Count 5.3 thou/uL (4.8-10.8)
[2019-12-16 09:21] LABS: PTT 25.8 sec (22.9-36.1); Prothrombin Time 13.5 sec (12.0-14.7)
[2019-12-16 09:33] LABS: ALT (SGPT) 14 U/L (8-55); AST (SGOT) 12 U/L (5-34); Albumin 3.8 g/dL (3.5-5.0); Alkaline Phosphatase 101 U/L (40-110); Anion Gap 10 mmol/L (10-20); BUN (Urea Nitrogen) 23 mg/dL (8.4-25.7); Bilirubin, Total 0.3 mg/dL (0.2-1.2); Calc. Creatinine Clearance 0 mL/min (70-130); Calcium 9.7 mg/dL (7.8-10.44); Carbon Dioxide 28 mmol/L (22-29); Chloride 106 mmol/L (98-107); Estimated GFR-MDRD 77; Globulin 3.2 g/dL (2.4-3.5); Glucose 115 mg/dL (70-105); Potassium 4.2 mmol/L (3.5-5.1); Sodium 140 mmol/L (136-145)
--- NOTE | 2019-12-16 10:45 | CT ---
CT abdomen and pelvis with IV contrast HISTORY: Abdomen pain. Rectal bleeding. COMPARISON: 08/14/2019. FINDINGS: Lung bases are clear. The liver, spleen, kidneys, adrenal glands, and pancreas have a luis armando l CT appearance. No enlarged lymph nodes or free fluid. Urinary bladder is unremarkable. Large amount of stool distends the rectum, measuring up to 7.4 cm transverse diameter. No evidence of bowel obstruction. Appendix is not inflamed. IMPRESSION : Fecal impaction. No acute abnormalities are otherwise demonstrated.
[2019-12-16] MEDS ORDERED: Iopamidol-370 76% 500 ML 1 ML ONE (11:26)
[2019-12-16] MEDS ORDERED: Glycerin Adult Supp. (12 ct jar) RC SCH (12:15)
[2019-12-16] MEDS ORDERED: Mineral Oil ENEMA PR SCH (13:00)
[2019-12-16] MEDS ORDERED: Fleet Enema 133 ML BOT FS SCH (16:30)
[2019-12-17 16:07] LABS: SARS-CoV-2 MS2 Positive; SARS-CoV-2 N Gene Negative; SARS-CoV-2 S Gene Negative; SARS-CoV-2 orf1ab Negative
== END 2019-12-16 15:13 | disposition home or self-care (01) ==
LOC: EEVIPCON 08:05 → ERS 08:05
DX: K92.1 Melena (principal); G40.909 Epilepsy, unspecified, not intractable, without status epilepticus; F31.9 Bipolar disorder, unspecified; F17.210 Nicotine dependence, cigarettes, uncomplicated; F17.220 Nicotine dependence, chewing tobacco, uncomplicated; Z20.828 Contact with and (suspected) exposure to other viral communicable diseases
CPT/HCPCS: 36415; 74177; 80053; 82274; 85025; 85610; 85730; 86850; 86900; 86901; 87635; Q9967; U0003